=== PATIENT | female | born 1940 | race Caucasian/White ===

== ENCOUNTER 2020-07-22 07:58 | Outpatient (REF) | payer MEDICARE, SELFPAY ==
--- NOTE | 2020-07-22 08:02 | MM_ITS ---
EXAMINATION: MM SCREENING DIGITAL BREAST TOMOSYNTHESIS, BILATERAL CLINICAL INFORMATION: Screening. Asymptomatic. The lifetime risk of breast cancer based on the Tyrer-Cuzick Model is 1%. COMPARISON: Mammography: 05/07/2019, 04/14/2018 TECHNIQUE: Digital breast tomosynthesis is performed in both the craniocaudal and mediolateral oblique views along with computer-aided detection (CAD). Synthesized 2D images are generated from the tomosynthesis. Additional left MLO view is provided. FINDINGS: The breasts are almost entirely fatty (ACR BI-RADS breast composition Category a). There are no significant masses, abnormal calcifications, or other abnormalities. Background stromal and fibroglandular densities are stable. The axilla and skin contours are unremarkable. MM/MM tomosynthesis screening BI IMPRESSION: No mammographic evidence of malignancy. ASSESSMENT: BI-RADS 1: Negative RECOMMENDATION: Routine annual mammography screening. This patient's information was entered into a reminder system with a target due date for their next mammogram.
== END 2020-07-22 07:59 | disposition home or self-care (01) ==
LOC: HO.MAMMO 07:58
PROVIDERS: PCP Internal Medicine; Visit Provider Internal Medicine
DX: Z12.31 Encounter for screening mammogram for malignant neoplasm of breast (principal)
CPT/HCPCS: 77063; 77067

== ENCOUNTER 2021-08-20 11:22 | Outpatient (REF) | payer MEDICARE, SELFPAY ==
[2021-08-20 12:38] LABS: Influenza A PCR NEGATIVE (Negative); Influenza B PCR NEGATIVE (Negative); Resp Syncy Virus RNA Qual PCR NEGATIVE (Negative); SARS COV2 PCR INHOUSE NEGATIVE (Negative)
== END 2021-08-20 11:23 | disposition home or self-care (01) ==
LOC: HO.LNP 11:22
PROVIDERS: Visit Provider Internal Medicine
DX: R43.9 Unspecified disturbances of smell and taste (principal); Z20.822 Contact with and (suspected) exposure to COVID-19
CPT/HCPCS: 0241U

== ENCOUNTER 2022-11-09 09:47 | Emergency (ER) | payer MEDICARE, SELFPAY ==
--- NOTE | 2022-11-09 | ECG_ITS ---
Test Reason : lt arm pain Blood Pressure : / mmHG Vent. Rate : 057 BPM Atrial Rate : 057 BPM P-R Int : 176 ms QRS Dur : 112 ms QT Int : 396 ms P-R-T Axes : 103 078 033 degrees QTc Int : 385 ms Sinus bradycardia Right bundle branch block Abnormal ECG When compared with ECG of 13-OCT-2012 13:28, Vent. rate has decreased BY 36 BPM Right bundle branch block is now Present Referred By: Generic ED Physician Electronically Signed By:HELENA AYOUB
--- NOTE | ~2022-11-09 | CT_ITS ---
EXAMINATION: CT ABDOMEN AND PELVIS WITHOUT CONTRAST CLINICAL INFORMATION: Abdominal pain COMPARISON: None TECHNIQUE: Multidetector volumetric imaging was performed from the superior aspect of the liver through the pubic symphysis. Sagittal and coronal reformatted images were obtained on the technologist's workstation. This CT examination was performed using dose optimization techniques as appropriate, variously including the following: *Automated exposure control *Adjustment of mA and/or kV according to patient size (this includes techniques or standardized protocols for targeted exams where dose is matched to indication/reason for exam; i.e. extremities or head) *Use of iterative reconstruction technique DLP: 493 mGy-cm FINDINGS: LUNG BASES: Bibasilar atelectasis is present, left greater than right. LIVER, GALLBLADDER, AND BILIARY TREE: The liver is normal in size, shape, and attenuation. No focal hepatic lesion is present. Status post cholecystectomy with mild prominence of intrahepatic bile ducts with 1.6 cm common bile duct PANCREAS: Fatty replacement of the pancreas. SPLEEN: Unremarkable. ADRENAL GLANDS: Unremarkable. KIDNEYS AND URETERS: The kidneys are normal in size, shape, and attenuation. Bilateral benign Bosniak class I renal cysts are present the largest measuring 3.8 cm at the right lower pole. Some probable hyperattenuating Bosniak class II cysts are seen as well the largest at right upper pole measuring 0.8 cm in size and 102 Hounsfield units. No suspicious solid renal masses seen. No hydronephrosis, hydroureter, or calculi seen. No perinephric stranding. BLADDER: Unremarkable. GASTROINTESTINAL TRACT: The small and large bowel are unremarkable. The appendix is not seen with certainty but there is no evidence of appendicitis appendicitis. ABDOMINAL WALL: There is been prior anterior abdominal wall hernia repair with mesh present LYMPH NODES: No retroperitoneal lymphadenopathy. VASCULAR: Marked atherosclerotic change with calcification seen in the aorta and iliofemoral vessels without aneurysm. PELVIC VISCERA: Uterus is not seen. An abnormal adnexal mass or free intraperitoneal fluid is not present. OSSEOUS STRUCTURES: Degenerative changes are present in the spine. There is a compression fracture involving the superior and inferior endplates of L3 as well as the inferior endplate of L1. No definite acute fracture is seen. CT/CT abdomen pelvis wo IV con IMPRESSION: 1. An etiology for the patient's abdominal pain has not been found. 2. 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 Fleischner guidelines were followed.
[2022-11-09 09:55] VITALS: BP 194/94; PULSE 68; RESP 18; TEMP 36.5; O2SAT 98; BMI 30.2
[2022-11-09] MEDS: Acetaminophen 325 MG TABLET 650 MG PO (10:23)
--- NOTE | 2022-11-09 10:34 | ED.GENADULT ---
HPI - General Adult General Chief complaint: General Medical Stated complaint: Back pain Time Seen by Provider: 11/09/22 10:21 Source: patient and family (Son) Mode of arrival: ambulatory Limitations: no limitations History of Present Illness HPI narrative: 82-year-old female came in for evaluation of left shoulder pain and back pain, patient's symptoms started about a week ago after clean 2 cars from snow. Patient describes the pain as constant pain started from her left shoulder plate down to the lower spine pain is moderate 5/10 increased with movement, patient also is complaining of diffuse abdominal pain that is worsening with movement, no nausea, no vomiting, no diarrhea with the abdominal pain. Normal urination with no dysuria or frequency urination, normal bowel movement and passing flatus. Related Data Home Medications Medication Instructions Recorded Confirmed atorvastatin 40 mg tablet 40 mg PO DAILY 08/20/21 calcitriol 0.5 mcg capsule 0 mcg PO 08/20/21 fluticasone propionate 50 spray intranasal 08/20/21 mcg/actuation nasal spray,suspension hydrocortisone 2.5 % topical cream topical 08/20/21 with perineal applicator levothyroxine 88 mcg tablet 88 mcg PO DAILY 08/20/21 omeprazole 40 mg capsule,delayed 40 mg PO BID 08/20/21 release torsemide 20 mg tablet 20 mg PO DAILY 08/20/21 aspirin 325 mg tablet 325 mg PO DAILY 02/19/22 cetirizine 10 mg tablet 10 mg PO DAILY 05/09/22 pregabalin 50 mg capsule 50 mg PO DAILY PRN 05/09/22 sennosides 8.6 mg tablet (senna) 8.6 mg PO DAILY 05/09/22 sucralfate 1 gram tablet 1 g PO BID 05/09/22 Previous Rx's Medication Instructions Recorded codeine sulfate 15 mg tablet 15 mg PO Q6H PRN pain #14 tabs 05/09/22 oxycodone 5 mg tablet 5 mg PO BID PRN pain #10 tabs 11/09/22 Allergies Allergy/AdvReac Type Severity Reaction Status Date / Time morphine [Morphine] Allergy Intermediate VOMITING Verified 11/09/22 09:53 hydroxyzine [From VISTARIL] Allergy Mild NAUSEA & Verified 11/09/22 09:53 VOMITING primidone [PRIMIDONE] Allergy Mild NAUSEA & Verified 11/09/22 09:53 VOMITING topiramate Allergy Unknown Verified 11/09/22 09:55 Review of Systems Review of Systems: All other systems are reviewed and are negative Constitutional: Reports as per HPI and Reports no additional constitutional complaints Eyes: Reports as per HPI and Reports no additional eye complaints Reports system reviewed and no additional complaints, except as documented Cardiovascular: Reports as per HPI and Reports no additional cardiovascular complaints Respiratory: Reports as per HPI and Reports no additional respiratory complaints Gastrointestinal: Reports as per HPI and Reports no additional gastrointestinal complaints Genitourinary: Reports no additional female genitourinary complaints Musculoskeletal: Reports no additional musculoskeletal complaints Skin/Breast: Reports system reviewed and no additional complaints, except as docu Psychiatric: Reports no additional psychiatric complaints Endocrine: Reports no additional endocrine complaints Hematologic/Lymphatic: Reports no additional hematologic/lymphatic complaints Allergic/Immunologic: Reports no additional allergic/immunologic complaints Reports system reviewed and no additional complaints, except as documented and Reports Abnormal speech present [facility] Social History Social History Patient Tobacco Use Status: Former Tobacco user Advance Directives: No Advance Directives Information Provided: Yes Physical Exam ED Vital Signs: Vital Signs - 24 hr 11/09/22 09:55 Temperature 97.7 F Pulse Rate 68 Respiratory Rate 18 Blood Pressure 194/94 H Pulse Oximetry 98 Oxygen Delivery Method Room Air BMI result Body Mass Index 30.2 Vital signs have been reviewed as appeared to be correct. Blood pressure normal. Heart rate normal. Respiration rate normal. Temperature normal. Oxygen saturation normal. Appearance: Alert. Oriented X3. No acute distress. Head: Normal external exam. Normocephalic. Atraumatic. No Galvez signs noted. No raccoon eyes noted Eyes: PERRLA. EOMI. Conjunctiva and sclera normal. Eyelids normal. ENT: TM's Normal. Pharynx normal. Uvula midline. Moist mucous membranes. No trismus noted. No drooling noted. No muffled voice noted. Neck: Normal inspection. Neck supple. FROM. No adenopathy. Thyroid Normal. No meningeal signs. No neck mass noted. CVS: Normal heart rate and rhythm. Heart sound normal. No murmurs noted. Pulses normal throughout. Respiratory: No respiratory distress. Painless inspiration. Breath sounds normal. No wheezes/rales/rhonchi noted. Chest nontender. No accessory muscle usage noted or decreased air movement noted. Abdomen: Soft and nontender. Bowel sounds normal in all 4 quadrants. No distention noted. No organomegaly noted. No visible injury noted. Back: No CVA tenderness. Full range of motion noted. Skin: Skin warm and dry. Normal skin color. Normal skin turgor. No rashes/lesions/lacerations noted. Extremities: No lower extremity edema. Extremities exhibit normal range of motion. Extremities nontender. Neuro: Oriented X 3. Cranial nerve exam: II-XII are grossly intact No motor deficit. No sensory deficit. Reflexes normal. Course Course Course Narrative: 82-year-old female came in for back pain after cleaning a car from snow, patient reported chronic renal insufficiency and she follow-up with Dr. Rivera for her kidney. Patient was offered placement into a rehab place but patient declined placement will prescribe oxycodone to the patient move around at home. Medications Administered Generic Name Dose Route Start Last Admin Trade Name Freq PRN Reason Stop Dose Admin Sodium Chloride 1,000 mls @ 999 mls/hr 11/09/22 12:45 11/09/22 13:03 Ns IV 11/09/22 13:45 Not Given .Q1H1M ONE Discontinued Medications Generic Name Dose Route Start Last Admin Trade Name Freq PRN Reason Stop Dose Admin Acetaminophen 650 mg 11/09/22 10:19 11/09/22 10:23 Acetaminophen 325 Mg Tablet PO 11/09/22 10:20 650 mg ONCE ONE Administration Hydromorphone HCl 1 mg 11/09/22 11:04 11/09/22 11:08 Hydromorphone Hcl 1 Mg/Ml Syringe IVPUSH 11/09/22 11:05 1 mg ONCE ONE Administration Protocol Sodium Chloride 1,000 mls @ 999 mls/hr 11/09/22 10:29 11/09/22 11:44 Ns IV 11/09/22 11:29 Infused .Q1H1M ONE Infusion Oxycodone HCl 5 mg 11/09/22 13:14 11/09/22 13:31 Oxycodone Hcl Immed Release 5 Mg Tablet PO 11/09/22 13:15 5 mg ONCE ONE Administration Medical Decision Making Differential Diagnosis Differential Diagnoses: The differential diagnosis associated with the presentation includes (Left shoulder pain, ACS, myofascial pain, back pain, dehydration, electrolyte disturbance.) Lab Data MDM Lab Attestation statement: I reviewed the patient's lab results. 11/09/22 10:41 11/09/22 10:41 Labs: Lab Results 11/09/22 11/09/22 11/09/22 Range/Units 10:41 10:41 10:43 WBC 9.7 (4.8-10.8) X10*3/uL RBC 4.01 L (4.20-5.50) X10*6/uL Hgb 12.2 (12.0-16.0) g/dl Hct 38.1 (37.0-47.0) % MCV 95.0 (80.0-98.0) fL MCH 30.4 (27.0-33.0) pg MCHC 32.0 (31.0-35.0) g/dl RDW 16.5 H (11.0-16.0) % Plt Count 159 L (160-400) X10*3/uL MPV 10.4 (9.4-12.3) fL Immature Gran % (Auto) 0.4 (0.0-0.4) % Neut % (Auto) 70.3 (45-73) % Lymph % (Auto) 17.1 L (20-40) % [place] % (Auto) 7.0 (2-11) % Eos % (Auto) 4.6 H (0-4) % Baso % (Auto) 0.6 (0-2) % Lymph # (Auto) 1.7 (1.2-4.9) X10*3/uL [place] # (Auto) 0.7 (0.1-1.2) X10*3/uL Eos # (Auto) 0.5 H (0.0-0.4) X10*3/uL Baso # (Auto) 0.1 (0.0-0.2) X10*3/uL Abs Immat Gran (auto) 0.04 H (0.00-0.03) X10*3/uL Absolute Neuts (auto) 6.8 (2.0-8.3) x10*3/uL Absolute Nucleated RBC 0.000 (0.0-0.012) X10*3/uL Nucleated RBC % (auto) 0.0 (0.0-0.2) /100WBC Sodium 141 (135-145) mmol/L Potassium 4.7 (3.3-5.1) mmol/L Chloride 116 H (96-108) mmol/L Carbon Dioxide 18 L (22-29) mmol/L Anion Gap 12 (12-20) BUN 38 H (9-16) mg/dL Creatinine 1.98 H (0.5-1.4) mg/dL Estim Creat Clear Calc 19.5 Estimated GFR 24 Random Glucose 93 (60-115) mg/dL Calcium 8.9 (8.4-10.2) mg/dL Total Bilirubin 0.5 (0.0-1.0) mg/dL Direct Bilirubin < 0.2 (0.0-0.5) mg/dL AST 28 (5-31) U/L ALT 70 H (0-31) U/L Alkaline Phosphatase 92 (39-117) U/L Troponin I High Sens 4.6 (<3.5-17.0) ng/L Total Protein 5.9 L (6.5-8.0) g/dL Albumin 3.5 (3.5-5.0) g/dL Lipase 11 (8-78) U/L Independent Interpretation I performed an independent interpretation of an: CT Scan (Abdomen pelvis:An etiology for the patient's abdominal pain has not been found. 2. Incidental note made of cholecystectomy, fatty replacement of the pancreas, benign Bosniak class I and class II renal cysts which need no further imaging or follow-up and degenerative changes in the spine with chroni) Radiology Impression Discussion of test interpretation with radiology: I have reviewed the radiologist's reading. Discharge Plan Discharge Clinical Impression: Back pain Patient Disposition: Home, Self-Care Instructions: Back Pain (ED) Prescriptions: New oxycodone 5 mg tablet 5 mg PO BID PRN (Reason: pain) Qty: 10 0RF Rx Instructions: Partial Fill upon patient request. No Action aspirin 325 mg tablet 325 mg PO DAILY pregabalin 50 mg capsule 50 mg PO DAILY PRN cetirizine 10 mg tablet 10 mg PO DAILY sennosides [senna] 8.6 mg tablet 8.6 mg PO DAILY sucralfate 1 gram tablet 1 g PO BID codeine sulfate 15 mg tablet 15 mg PO Q6H PRN (Reason: pain) Qty: 14 0RF Rx Instructions: Partial Fill upon patient request. levothyroxine 88 mcg tablet 88 mcg PO DAILY hydrocortisone 2.5 % cream with perineal applicator topical fluticasone propionate 50 mcg/actuation spray,suspension intranasal calcitriol 0.5 mcg capsule 0 mcg PO atorvastatin 40 mg tablet 40 mg PO DAILY omeprazole 40 mg capsule,delayed release(DR/EC) 40 mg PO BID torsemide 20 mg tablet 20 mg PO DAILY Referrals: Alvarado Reynoso MD [Primary Care Provider] -
--- NOTE | 2022-11-09 10:36 | PC.NURSE ---
82 y/o F pw her son, pt states that she was cleaning off her car this AM when she suddenly felt a sharp pain in her L shoulder radiating to back. pt denies any CP/palps/sob, denies any other complaints. pt is ambulatory with assistance, VSS, aox3. plan for labs, imaging, IV fluids, given tylenol for pain management. pt in gown, on monitor.
[2022-11-09 10:46] LABS: MANUAL DIFF FLAG NO
[2022-11-09] MEDS: 0.9 % Sodium Chloride 1,000 ML 999 ML IV (10:47)
[2022-11-09 10:48] LABS: Basophils Absolute Auto 0.1 X10*3/uL (0.0-0.2); Basophils Percent Auto 0.6 % (0-2); Eosinophils Absolute Auto 0.5 X10*3/uL (0.0-0.4); Eosinophils Percent Auto 4.6 % (0-4); Hematocrit 38.1 % (37.0-47.0); Hemoglobin 12.2 g/dl (12.0-16.0); Imm Gran Abs Auto 0.04 X10*3/uL (0.00-0.03); Imm Gran Pct Auto 0.4 % (0.0-0.4); Lymphocytes Absolute Auto 1.7 X10*3/uL (1.2-4.9); Lymphocytes Percent Auto 17.1 % (20-40); Mean Corpuscular Hemoglobin 30.4 pg (27.0-33.0); Mean Platelet Volume 10.4 fL (9.4-12.3); Monocytes Absolute Auto 0.7 X10*3/uL (0.1-1.2); Neutrophils Absolute Auto 6.8 x10*3/uL (2.0-8.3); Neutrophils Percent Auto 70.3 % (45-73); Platelet Count 159 X10*3/uL (160-400); Red Blood Count 4.01 X10*6/uL (4.20-5.50); Red Cell Distribution Width 16.5 % (11.0-16.0); White Blood Count 9.7 X10*3/uL (4.8-10.8)
[2022-11-09 11:06] LABS: Alanine Aminotransferase 70 U/L (0-31); Albumin Level 3.5 g/dL (3.5-5.0); Alkaline Phosphatase 92 U/L (39-117); Anion Gap 12 (12-20); Aspartate Amino Transferase 28 U/L (5-31); Bilirubin Direct < 0.2 mg/dL (0.0-0.5); Bilirubin Total 0.5 mg/dL (0.0-1.0); Blood Urea Nitrogen 38 mg/dL (9-16); Calcium 8.9 mg/dL (8.4-10.2); Carbon Dioxide 18 mmol/L (22-29); Chloride 116 mmol/L (96-108); Creatinine Clr Calc Pharmacy 19.5; Estimated Glomerular Filt Rate 24; Glucose Random 93 mg/dL (60-115); Lipase 11 U/L (8-78); Potassium 4.7 mmol/L (3.3-5.1); Sodium 141 mmol/L (135-145); Total Protein 5.9 g/dL (6.5-8.0)
[2022-11-09 11:07] LABS: Troponin-I High Sensitivity 4.6 ng/L (<3.5-17.0)
[2022-11-09] MEDS: HYDROmorphone HCl 1 MG/ML SYRINGE IVPUSH (11:08)
[2022-11-09] MEDS: oxyCODONE HCl Immed Release 5 MG TABLET PO (13:31)
== END 2022-11-09 15:14 | disposition home or self-care (01) ==
PROVIDERS: Emergency Provider Emergency Medicine; PCP Internal Medicine
DX: M54.9 Dorsalgia, unspecified (principal); R10.9 Unspecified abdominal pain; R93.5 Abnormal findings on diagnostic imaging of other abdominal regions, including retroperitoneum; K86.89 Other specified diseases of pancreas; Q61.02 Congenital multiple renal cysts; M47.819 Spondylosis without myelopathy or radiculopathy, site unspecified; Z87.891 Personal history of nicotine dependence; Z79.02 Long term (current) use of antithrombotics/antiplatelets; Z79.82 Long term (current) use of aspirin; Z79.899 Other long term (current) drug therapy
CPT/HCPCS: 36415; 74176; 80048; 80076; 83690; 84484; 85025; 93005; 96361; 96374; 99284; J1170

== ENCOUNTER 2023-01-03 12:09 | Observation (INO) | payer MEDICARE, OTHER, SELFPAY ==
--- NOTE | ~2023-01-03 | CT_ITS ---
EXAMINATION: CT ABDOMEN AND PELVIS WITHOUT CONTRAST CLINICAL INFORMATION: Lower abdominal pain, black stools. COMPARISON: CT abdomen and pelvis without IV contrast 1123 TECHNIQUE: Multidetector volumetric imaging was performed from the superior aspect of the liver through the pubic symphysis. Sagittal and coronal reformatted images were obtained on the technologist's workstation. This CT examination was performed using dose optimization techniques as appropriate, variously including the following: *Automated exposure control *Adjustment of mA and/or kV according to patient size (this includes techniques or standardized protocols for targeted exams where dose is matched to indication/reason for exam; i.e. extremities or head) *Use of iterative reconstruction technique DLP: 485 mGy-cm FINDINGS: LUNG BASES: The lung bases are clear. The heart size is normal. LIVER, GALLBLADDER, AND BILIARY TREE: The liver is normal in size, shape, and attenuation. No focal hepatic lesion or biliary ductal dilatation is present. The gallbladder has been surgically removed. The CBD is dilated measuring 1.2 cm. PANCREAS: The pancreas is atrophic. SPLEEN: Unremarkable. ADRENAL GLANDS: Unremarkable. KIDNEYS AND URETERS: The kidneys are normal in size, shape, and attenuation. No hydronephrosis, hydroureter, or calculi seen. No perinephric stranding. There are several hypodense small lesions in the upper pole left kidney and mid lower pole right kidney measuring 3 mm and less. There is 3.8 cm cyst lower pole right kidney with a bilobed adjacent to centimeters cyst in mid to lower pole right kidney. BLADDER: Unremarkable. GASTROINTESTINAL TRACT: There is scattered stool, diverticula and gas seen throughout the colon without distention. The small bowel loops are normal caliber. Appendix is normal caliber. No free air or free fluid seen. ABDOMINAL WALL: There is previous anterior abdominal wall hernia repair with mesh in place LYMPH NODES: No abnormal size retroperitoneal or pelvic lymph nodes seen. VASCULAR: There is arthroscopic calcification of abdominal aorta and bilateral common iliac arteries. PELVIC VISCERA: There is diffuse sigmoid colon diverticula since without diverticulitis. OSSEOUS STRUCTURES: There are old compression fractures involving L3 and L1 vertebra. Mild degenerative vacuum disc phenomena L5-S1 and L1-L2 disc levels. CT/CT abdomen pelvis wo IV con IMPRESSION: 1. Diffuse sigmoid and scattered rest of the colon diverticulosis without diverticulitis. 2. No radiopaque urolith or hydroureteronephrosis. Simple and complex renal cysts. 3. Old compression fracture lumbar spine. Fleischner guidelines were followed.
[2023-01-03 12:22] VITALS: BP 197/66; PULSE 66; RESP 16; TEMP 35.8; O2SAT 97; BMI 30.1
--- NOTE | 2023-01-03 12:23 | ED_ITS ---
HPI - GI Bleed General Chief complaint: General Medical Stated complaint: blood in stools Time Seen by Provider: 01/03/23 14:36 Related Data Home Medications Medication Instructions Recorded Confirmed atorvastatin 40 mg tablet 40 mg PO BEDTIME 08/20/21 01/03/23 fluticasone propionate 50 1 spray intranasal DAILY PRN 08/20/21 01/03/23 mcg/actuation nasal Congestion spray,suspension levothyroxine 88 mcg tablet 88 mcg PO DAILY@0600 08/20/21 01/03/23 omeprazole 40 mg capsule,delayed 40 mg PO BID 08/20/21 01/03/23 release torsemide 20 mg tablet 20 mg PO TUSA 08/20/21 01/03/23 aspirin 325 mg tablet 325 mg PO DAILY 02/19/22 01/03/23 cetirizine 10 mg tablet 10 mg PO DAILY 05/09/22 01/03/23 sennosides 8.6 mg tablet (senna) 8.6 mg PO Q48H 05/09/22 01/03/23 sucralfate 1 gram tablet 1 g PO BID 05/09/22 01/03/23 calcitriol 0.5 mcg capsule 2 mcg PO SA 01/03/23 01/03/23 cholecalciferol (vitamin D3) 50 50 mcg PO DAILY 01/03/23 01/03/23 mcg (2,000 unit) tablet cyanocobalamin (vitamin B-12) 1,000 mcg PO DAILY 01/03/23 01/03/23 1,000 mcg tablet fluticasone fur. 100 mcg-umeclid 1 ea inhalation DAILY 01/03/23 01/03/23 62.5 mcg-vilant 25 mcg inhalat.powder (Trelegy Ellipta) halobetasol propionate 0.05 % 1 appl topical BID PRN Rash 01/03/23 01/03/23 topical cream metoprolol succinate 25 mg 25 mg PO DAILY 01/03/23 01/03/23 tablet,extended release 24 hr metronidazole 0.75 % topical cream 1 appl topical DAILY PRN Rash 01/03/23 0 01/03/23 montelukast 10 mg tablet 10 mg PO BEDTIME 01/03/23 01/03/23 potassium chloride 20 mEq 20 meq PO TUSA 01/03/23 01/03/23 tablet,extended release pregabalin 50 mg capsule 50 mg PO DAILY 01/03/23 01/03/23 sertraline 25 mg tablet 25 mg PO DAILY 01/03/23 01/03/23 Allergies Allergy/AdvReac Type Severity Reaction Status Date / Time morphine [Morphine] Allergy Intermediate VOMITING Verified 11/09/22 09:53 hydroxyzine [From VISTARIL] Allergy Mild NAUSEA & Verified 11/09/22 09:53 VOMITING primidone [PRIMIDONE] Allergy Mild NAUSEA & Verified 11/09/22 09:53 VOMITING topiramate Allergy Unknown Verified 11/09/22 09:55 [facility] Past Medical History Medical History (Updated 01/03/23 @ 17:12 by CAROLYN Jack) CHF (congestive heart failure) CKD (chronic kidney disease) COPD (chronic obstructive pulmonary disease) GERD (gastroesophageal reflux disease) HLD (hyperlipidemia) HTN (hypertension) Hypothyroidism Social History Social History Alcohol intake: never Patient Tobacco Use Status: Former Tobacco user Physical Exam Vital Signs: Vital Signs: Last Vital Signs Temp 96.5 F L 01/03/23 12:22 Pulse 66 01/03/23 12:22 Resp 16 01/03/23 12:22 BP 176/84 H 01/03/23 20:30 Pulse Ox 97 01/03/23 12:22 O2 Del Method Room Air 01/03/23 12:22 BMI result Body Mass Index 30.1 Course Course Course Narrative: RME - 82 yo female with history of CHF, COPD, HTN, hypothyroidism, and CKD who presents to the ER for evaluation of loose black stools that started yesterday. She states she has had 3 episodes since yesterday. She has had stomach cramping for the last 2 weeks. She has some lower abdominal pain. +nausea, no vomiting. She is on baby aspirin, no anticoagluation or NSAIDs. No hx GIB in the past. Last colonoscopy and EGD 5-6 years ago and she cannot recall any abnormal results. Hypertensive in triage 190s systolic. Not tachycardic. She took her BP meds this am. Plan: lab workup and CT scan and/pelvis (dry, hx CKD) Reevaluation(s) Reevaluation #1: See Dr. Andrade's note for full assessment and plan Medications Administered Generic Name Dose Route Start Last Admin Trade Name Husam PRN Reason Stop Dose Admin Sodium Chloride 1,000 mls @ 100 mls/hr 01/03/23 16:30 01/03/23 17:10 Ns IVCONT 100 mls/hr .Q10H WALLY Administration Discontinued Medications Generic Name Dose Route Start Last Admin Trade Name Husam PRN Reason Stop Dose Admin Famotidine 20 mg 01/03/23 16:15 01/03/23 17:10 Famotidine/Pf 20 Mg/2 Ml Vial IVPUSH 01/03/23 16:16 20 mg ONCE ONE Administration Medical Decision Making Lab Data 01/03/23 12:43 01/03/23 14:47 Labs: Lab Results 01/03/23 01/03/23 01/03/23 Range/Units 12:43 14:44 14:47 WBC 11.3 H (4.8-10.8) X10*3/uL RBC 4.06 L (4.20-5.50) X10*6/uL Hgb 12.9 (12.0-16.0) g/dl Hct 40.9 (37.0-47.0) % MCV 100.7 H (80.0-98.0) fL MCH 31.8 (27.0-33.0) pg MCHC 31.5 (31.0-35.0) g/dl RDW 14.5 (11.0-16.0) % Plt Count 225 D (160-400) X10*3/uL MPV 10.9 (9.4-12.3) fL Immature Gran % (Auto) 0.6 H (0.0-0.4) % Neut % (Auto) 68.5 (45-73) % Lymph % (Auto) 18.5 L (20-40) % Coffee % (Auto) 7.1 (2-11) % Eos % (Auto) 4.7 H (0-4) % Baso % (Auto) 0.6 (0-2) % Lymph # (Auto) 2.1 (1.2-4.9) X10*3/uL Coffee # (Auto) 0.8 (0.1-1.2) X10*3/uL Eos # (Auto) 0.5 H (0.0-0.4) X10*3/uL Baso # (Auto) 0.1 (0.0-0.2) X10*3/uL Abs Immat Gran (auto) 0.07 H (0.00-0.03) X10*3/uL Absolute Neuts (auto) 7.7 (2.0-8.3) x10*3/uL Absolute Nucleated RBC 0.000 (0.0-0.012) X10*3/uL Nucleated RBC % (auto) 0.0 (0.0-0.2) /100WBC PT 11.2 (10.0-13.1) SEC INR 1.0 (0.9-1.1) APTT 26.1 (26.0-36.4) SEC Sodium (135-145) mmol/L Potassium (3.3-5.1) mmol/L Chloride (96-108) mmol/L Carbon Dioxide (22-29) mmol/L Anion Gap (12-20) BUN (9-16) mg/dL Creatinine (0.5-1.4) mg/dL Estim Creat Clear Calc Estimated GFR Random Glucose (60-115) mg/dL Calcium (8.4-10.2) mg/dL Magnesium (1.6-2.6) mg/dL Total Bilirubin (0.0-1.0) mg/dL Direct Bilirubin (0.0-0.5) mg/dL AST (5-31) U/L ALT (0-31) U/L Alkaline Phosphatase (39-117) U/L Total Protein (6.5-8.0) g/dL Albumin (3.5-5.0) g/dL Urine Color Urine Appearance Urine pH (5.0-9.0) Ur Specific [place] (1.005-1.025) Urine Protein (Neg-Trace) mg/dL Urine Glucose (UA) (Negative) mg/dL Urine Ketones (Negative) mg/dL Urine Blood (Negative) Urine Nitrite (Negative) Ur Leukocyte Esterase (Negative) Urine RBC (0-2) /HPF Urine WBC (0-5) /HPF Ur Squamous Epith Cells (0-2) /HPF Urine Bacteria (None Seen) Hyaline Casts (0-2) /LPF Stool Occult Blood POSITIVE (NEGATIVE) 01/03/23 01/03/23 Range/Units 14:47 15:48 WBC (4.8-10.8) X10*3/uL RBC (4.20-5.50) X10*6/uL Hgb (12.0-16.0) g/dl Hct (37.0-47.0) % MCV (80.0-98.0) fL MCH (27.0-33.0) pg MCHC (31.0-35.0) g/dl RDW (11.0-16.0) % Plt Count (160-400) X10*3/uL MPV (9.4-12.3) fL Immature Gran % (Auto) (0.0-0.4) % Neut % (Auto) (45-73) % Lymph % (Auto) (20-40) % [place] % (Auto) (2-11) % Eos % (Auto) (0-4) % Baso % (Auto) (0-2) % Lymph # (Auto) (1.2-4.9) X10*3/uL [place] # (Auto) (0.1-1.2) X10*3/uL Eos # (Auto) (0.0-0.4) X10*3/uL Baso # (Auto) (0.0-0.2) X10*3/uL Abs Immat Gran (auto) (0.00-0.03) X10*3/uL Absolute Neuts (auto) (2.0-8.3) x10*3/uL Absolute Nucleated RBC (0.0-0.012) X10*3/uL Nucleated RBC % (auto) (0.0-0.2) /100WBC PT (10.0-13.1) SEC INR (0.9-1.1) APTT (26.0-36.4) SEC Sodium 140 (135-145) mmol/L Potassium 4.4 (3.3-5.1) mmol/L Chloride 112 H (96-108) mmol/L Carbon Dioxide 20 L (22-29) mmol/L Anion Gap 12 (12-20) BUN 26 H (9-16) mg/dL Creatinine 1.80 H (0.5-1.4) mg/dL Estim Creat Clear Calc 21.3 Estimated GFR 27 Random Glucose 86 (60-115) mg/dL Calcium 9.4 (8.4-10.2) mg/dL Magnesium 2.0 (1.6-2.6) mg/dL Total Bilirubin 0.5 (0.0-1.0) mg/dL Direct Bilirubin 0.1 (0.0-0.5) mg/dL AST 17 (5-31) U/L ALT 16 (0-31) U/L Alkaline Phosphatase 60 (39-117) U/L Total Protein 6.3 L (6.5-8.0) g/dL Albumin 3.8 (3.5-5.0) g/dL Urine Color Yellow Urine Appearance Clear Urine pH 5.5 (5.0-9.0) Ur Specific [place] 1.010 (1.005-1.025) Urine Protein Negative (Neg-Trace) mg/dL Urine Glucose (UA) Negative (Negative) mg/dL Urine Ketones Negative (Negative) mg/dL Urine Blood Trace H (Negative) Urine Nitrite Negative (Negative) Ur Leukocyte Esterase Large (3+) H (Negative) Urine RBC 0-2 (0-2) /HPF Urine WBC 21-50 H (0-5) /HPF Ur Squamous Epith Cells 3-5 (0-2) /HPF Urine Bacteria None Seen (None Seen) Hyaline Casts 0-2 (0-2) /LPF Stool Occult Blood (NEGATIVE) Discharge Plan Discharge Clinical Impression: PRB (rectal bleeding) Patient Disposition: Admitted As Inpatient Interventions: Admission Worksheet (ED) Last Done: 01/03/23 18:44 Discharge Date/Time: 01/03/23 18:45
[2023-01-03 12:46] LABS: MANUAL DIFF FLAG NO
[2023-01-03 12:47] LABS: Basophils Absolute Auto 0.1 X10*3/uL (0.0-0.2); Basophils Percent Auto 0.6 % (0-2); Eosinophils Absolute Auto 0.5 X10*3/uL (0.0-0.4); Eosinophils Percent Auto 4.7 % (0-4); Hematocrit 40.9 % (37.0-47.0); Hemoglobin 12.9 g/dl (12.0-16.0); Imm Gran Abs Auto 0.07 X10*3/uL (0.00-0.03); Imm Gran Pct Auto 0.6 % (0.0-0.4); Lymphocytes Absolute Auto 2.1 X10*3/uL (1.2-4.9); Lymphocytes Percent Auto 18.5 % (20-40); Mean Corpuscular HGB Conc 31.5 g/dl (31.0-35.0); Mean Corpuscular Hemoglobin 31.8 pg (27.0-33.0); Mean Corpuscular Volume 100.7 fL (80.0-98.0); Mean Platelet Volume 10.9 fL (9.4-12.3); Monocytes Absolute Auto 0.8 X10*3/uL (0.1-1.2); Monocytes Percent Auto 7.1 % (2-11); Neutrophils Absolute Auto 7.7 x10*3/uL (2.0-8.3); Neutrophils Percent Auto 68.5 % (45-73); Platelet Count 225 X10*3/uL (160-400); Red Blood Count 4.06 X10*6/uL (4.20-5.50); Red Cell Distribution Width 14.5 % (11.0-16.0); White Blood Count 11.3 X10*3/uL (4.8-10.8)
--- NOTE | 2023-01-03 14:37 | ED_ITS ---
HPI - General Adult General Chief complaint: General Medical Stated complaint: blood in stools Time Seen by Provider: 01/03/23 14:36 Source: patient Mode of arrival: ambulatory Limitations: no limitations History of Present Illness HPI narrative: This is 82 years old female presented to the emergency department complaining of rectal bleeding since yesterday also she is complaining of abdominal cramps. Denies any vomiting. No fever no other systemic symptoms Onset (ago): day(s) (2) Radiation: non-radiation Severity: moderate Quality: burning Pain Consistency: constant Relieving factors: none Exacerbating factors: none Treatments prior to arrival: none Related Data Home Medications Medication Instructions Recorded Confirmed atorvastatin 40 mg tablet 40 mg PO DAILY 08/20/21 calcitriol 0.5 mcg capsule 0 mcg PO 08/20/21 fluticasone propionate 50 spray intranasal 08/20/21 mcg/actuation nasal spray,suspension hydrocortisone 2.5 % topical cream topical 08/20/21 with perineal applicator levothyroxine 88 mcg tablet 88 mcg PO DAILY 08/20/21 omeprazole 40 mg capsule,delayed 40 mg PO BID 08/20/21 release torsemide 20 mg tablet 20 mg PO DAILY 08/20/21 aspirin 325 mg tablet 325 mg PO DAILY 02/19/22 cetirizine 10 mg tablet 10 mg PO DAILY 05/09/22 pregabalin 50 mg capsule 50 mg PO DAILY PRN 05/09/22 sennosides 8.6 mg tablet (senna) 8.6 mg PO DAILY 05/09/22 sucralfate 1 gram tablet 1 g PO BID 05/09/22 Previous Rx's Medication Instructions Recorded codeine sulfate 15 mg tablet 15 mg PO Q6H PRN pain #14 tabs 05/09/22 oxycodone 5 mg tablet 5 mg PO BID PRN pain #10 tabs 11/09/22 Allergies Allergy/AdvReac Type Severity Reaction Status Date / Time morphine [Morphine] Allergy Intermediate VOMITING Verified 11/09/22 09:53 hydroxyzine [From VISTARIL] Allergy Mild NAUSEA & Verified 11/09/22 09:53 VOMITING primidone [PRIMIDONE] Allergy Mild NAUSEA & Verified 11/09/22 09:53 VOMITING topiramate Allergy Unknown Verified 11/09/22 09:55 Review of Systems Constitutional: Constitutional: Reports no additional constitutional complaints Cardiovascular: Cardiovascular: Reports no additional cardiovascular complaints Gastrointestinal: Gastrointestinal: Denies abdominal pain, Reports hematochezia and Reports nausea [facility] Past Medical History [facility] Narrative: Patient has history of congestive heart failure, hypertension, hypercholesterolemia Social History Social History Patient Tobacco Use Status: Former Tobacco user Advance Directives: No Advance Directives Information Provided: Yes Physical Exam ED Vital Signs: Vital Signs - 24 hr 01/03/23 12:22 Temperature 96.5 F L Pulse Rate 66 Respiratory Rate 16 Blood Pressure 197/66 H Pulse Oximetry 97 Oxygen Delivery Method Room Air BMI result Body Mass Index 30.1 Const General: cooperative Nutritional Appearance: well nourished Orientation/consciousness: patient oriented x3 HENMT Head: Yes normal to inspection General nose exam: Normal external nose present Face and sinus: Yes normal facial exam Mouth: Normal oral and palatal mucosa present Throat: Yes posterior oropharynx normal Neck Neck: Yes normal visual inspection and Yes full ROM Chest Chest palpation & inspection: normal inspection of the chest Resp Effort & Inspection: normal respiratory effort Cardio Rate: regular rate Rhythm: regular rhythm GI Inspection: Yes normal to inspection Palpation (GI): not soft, not firm, nontender, no guarding and not rigid Rectal Exam - Female: visual inspection normal, normal sphincter tone and other (brown stools) Neuro General: patient oriented x3 Course Reevaluation(s) Reevaluation #1: Remain stable anticipate admission for observation H&H stable Time: 16:36 Medical Decision Making Medical Decision Making [facility] Narrative: Patient presented with a bleeding hemoglobin is stable given her age [age] years old this resume to admit for observation Differential Diagnosis Differential Diagnoses: The differential diagnosis associated with the presentation includes Colitis/diverticulitis/hemorrhoid Admission/Observation Consideration of admission/observation: Escalation of care including admission/observation considered Consult Healthcare Provider Management of the patient was discussed with: Hospitalist Lab Data [facility] Lab Attestation statement: I reviewed the patient's lab results. 01/03/23 12:43 Labs: Lab Results 01/03/23 01/03/23 01/03/23 Range/Units 12:43 14:44 14:47 WBC 11.3 H (4.8-10.8) X10*3/uL RBC 4.06 L (4.20-5.50) X10*6/uL Hgb 12.9 (12.0-16.0) g/dl Hct 40.9 (37.0-47.0) % MCV 100.7 H (80.0-98.0) fL MCH 31.8 (27.0-33.0) pg MCHC 31.5 (31.0-35.0) g/dl RDW 14.5 (11.0-16.0) % Plt Count 225 D (160-400) X10*3/uL MPV 10.9 (9.4-12.3) fL Immature Gran % (Auto) 0.6 H (0.0-0.4) % Neut % (Auto) 68.5 (45-73) % Lymph % (Auto) 18.5 L (20-40) % Glenn % (Auto) 7.1 (2-11) % Eos % (Auto) 4.7 H (0-4) % Baso % (Auto) 0.6 (0-2) % Lymph # (Auto) 2.1 (1.2-4.9) X10*3/uL Glenn # (Auto) 0.8 (0.1-1.2) X10*3/uL Eos # (Auto) 0.5 H (0.0-0.4) X10*3/uL Baso # (Auto) 0.1 (0.0-0.2) X10*3/uL Abs Immat Gran (auto) 0.07 H (0.00-0.03) X10*3/uL Absolute Neuts (auto) 7.7 (2.0-8.3) x10*3/uL Absolute Nucleated RBC 0.000 (0.0-0.012) X10*3/uL Nucleated RBC % (auto) 0.0 (0.0-0.2) /100WBC PT 11.2 (10.0-13.1) SEC INR 1.0 (0.9-1.1) APTT 26.1 (26.0-36.4) SEC Sodium (135-145) mmol/L Potassium (3.3-5.1) mmol/L Chloride (96-108) mmol/L Carbon Dioxide (22-29) mmol/L Anion Gap (12-20) BUN (9-16) mg/dL Creatinine (0.5-1.4) mg/dL Estim Creat Clear Calc Estimated GFR Random Glucose (60-115) mg/dL Calcium (8.4-10.2) mg/dL Magnesium (1.6-2.6) mg/dL Total Bilirubin (0.0-1.0) mg/dL Direct Bilirubin (0.0-0.5) mg/dL AST (5-31) U/L ALT (0-31) U/L Alkaline Phosphatase (39-117) U/L Total Protein (6.5-8.0) g/dL Albumin (3.5-5.0) g/dL Urine Color Urine Appearance Urine pH (5.0-9.0) Ur Specific [place] (1.005-1.025) Urine Protein (Neg-Trace) mg/dL Urine Glucose (UA) (Negative) mg/dL Urine Ketones (Negative) mg/dL Urine Blood (Negative) Urine Nitrite (Negative) Ur Leukocyte Esterase (Negative) Urine RBC (0-2) /HPF Urine WBC (0-5) /HPF Ur Squamous Epith Cells (0-2) /HPF Urine Bacteria (None Seen) Hyaline Casts (0-2) /LPF Stool Occult Blood POSITIVE (NEGATIVE) 01/03/23 01/03/23 Range/Units 14:47 15:48 WBC (4.8-10.8) X10*3/uL RBC (4.20-5.50) X10*6/uL Hgb (12.0-16.0) g/dl Hct (37.0-47.0) % MCV (80.0-98.0) fL MCH (27.0-33.0) pg MCHC (31.0-35.0) g/dl RDW (11.0-16.0) % Plt Count (160-400) X10*3/uL MPV (9.4-12.3) fL Immature Gran % (Auto) (0.0-0.4) % Neut % (Auto) (45-73) % Lymph % (Auto) (20-40) % Glenn % (Auto) (2-11) % Eos % (Auto) (0-4) % Baso % (Auto) (0-2) % Lymph # (Auto) (1.2-4.9) X10*3/uL [place] # (Auto) (0.1-1.2) X10*3/uL Eos # (Auto) (0.0-0.4) X10*3/uL Baso # (Auto) (0.0-0.2) X10*3/uL Abs Immat Gran (auto) (0.00-0.03) X10*3/uL Absolute Neuts (auto) (2.0-8.3) x10*3/uL Absolute Nucleated RBC (0.0-0.012) X10*3/uL Nucleated RBC % (auto) (0.0-0.2) /100WBC PT (10.0-13.1) SEC INR (0.9-1.1) APTT (26.0-36.4) SEC Sodium 140 (135-145) mmol/L Potassium 4.4 (3.3-5.1) mmol/L Chloride 112 H (96-108) mmol/L Carbon Dioxide 20 L (22-29) mmol/L Anion Gap 12 (12-20) BUN 26 H (9-16) mg/dL Creatinine 1.80 H (0.5-1.4) mg/dL Estim Creat Clear Calc 21.3 Estimated GFR 27 Random Glucose 86 (60-115) mg/dL Calcium 9.4 (8.4-10.2) mg/dL Magnesium 2.0 (1.6-2.6) mg/dL Total Bilirubin 0.5 (0.0-1.0) mg/dL Direct Bilirubin 0.1 (0.0-0.5) mg/dL AST 17 (5-31) U/L ALT 16 (0-31) U/L Alkaline Phosphatase 60 (39-117) U/L Total Protein 6.3 L (6.5-8.0) g/dL Albumin 3.8 (3.5-5.0) g/dL Urine Color Yellow Urine Appearance Clear Urine pH 5.5 (5.0-9.0) Ur Specific [place] 1.010 (1.005-1.025) Urine Protein Negative (Neg-Trace) mg/dL Urine Glucose (UA) Negative (Negative) mg/dL Urine Ketones Negative (Negative) mg/dL Urine Blood Trace H (Negative) Urine Nitrite Negative (Negative) Ur Leukocyte Esterase Large (3+) H (Negative) Urine RBC 0-2 (0-2) /HPF Urine WBC 21-50 H (0-5) /HPF Ur Squamous Epith Cells 3-5 (0-2) /HPF Urine Bacteria None Seen (None Seen) Hyaline Casts 0-2 (0-2) /LPF Stool Occult Blood (NEGATIVE) Independent Interpretation I performed an independent interpretation of an: CT Scan Interpretation: Normal CT Radiology Impression Discussion of test interpretation with radiology: I have reviewed the radiologist's reading. Radiologist Impression: VASCULAR: There is arthroscopic calcification of abdominal aorta and bilateral common iliac arteries. PELVIC VISCERA: There is diffuse sigmoid colon diverticula since without diverticulitis.? OSSEOUS STRUCTURES: There are old compression fractures involving L3 and L1 vertebra. Mild degenerative vacuum disc phenomena L5-S1 and L1-L2 disc levels.? CT/CT abdomen pelvis wo IV con IMPRESSION: 1.? Diffuse sigmoid and scattered rest of the colon diverticulosis without diverticulitis. 2.? No radiopaque urolith or hydroureteronephrosis. Simple and complex renal cysts. 3.? Old compression fracture lumbar spine. ? Fleischner guidelines were followed. Dictated By: Montana Velazquez Discharge Plan Discharge Clinical Impression: PRB (rectal bleeding) Patient Disposition: Admitted As Inpatient
[2023-01-03 14:55] LABS: OBS Int Ctl Valid YES; OBS1 POSITIVE (NEGATIVE)
[2023-01-03 15:01] LABS: Prothrombin Time 11.2 SEC (10.0-13.1)
[2023-01-03 15:04] LABS: Partial Thromboplastin Time 26.1 SEC (26.0-36.4)
[2023-01-03 15:49] LABS: Alanine Aminotransferase 16 U/L (0-31); Albumin Level 3.8 g/dL (3.5-5.0); Alkaline Phosphatase 60 U/L (39-117); Anion Gap 12 (12-20); Aspartate Amino Transferase 17 U/L (5-31); Bilirubin Direct 0.1 mg/dL (0.0-0.5); Bilirubin Total 0.5 mg/dL (0.0-1.0); Blood Urea Nitrogen 26 mg/dL (9-16); Calcium 9.4 mg/dL (8.4-10.2); Carbon Dioxide 20 mmol/L (22-29); Chloride 112 mmol/L (96-108); Creatinine Clr Calc Pharmacy 21.3; Estimated Glomerular Filt Rate 27; Glucose Random 86 mg/dL (60-115); Potassium 4.4 mmol/L (3.3-5.1); Sodium 140 mmol/L (135-145); Total Protein 6.3 g/dL (6.5-8.0)
[2023-01-03 16:01] LABS: Appearance Urine Clear; Color Urine Yellow; Glucose Urine UA Negative (Negative); Leukocyte Esterase Urine Large (3+) (Negative); Nitrite Urine Negative (Negative); PH 5.5 (5.0-9.0); UMIC TRIGGER UACC YES; Urine Blood Trace (Negative); Urine Ketones Negative (Negative); Urine Protein Negative (Neg-Trace)
[2023-01-03 16:06] LABS: Bacteria Urine None Seen (None Seen); Hyaline Casts Urine 0-2 /LPF (0-2); RBC Urine 0-2 /HPF (0-2); UACC Culture Trigger YES; WBC Urine 21-50 /HPF (0-5)
--- NOTE | 2023-01-03 16:45 | P.HPHOSP_ITS ---
History of Present Illness Date of Service: 01/03/23 Attending physician on admission: Sesar Kohler Chief Complaint: abdominal pain, black stools This is an 82-year-old female with history of hypertension, hyperlipidemia, COPD who presents to the emergency department with complaints of abdominal pain and black stools. Patient states for the past 2 weeks she has had 2-3 episodes of diarrhea daily. This has been associated with persistent mid abdominal cramping. The pain is worse after eating and it improves after a bout of diarrhea temporarily. She denies any associated fever or chills. She has had nausea but no vomiting. For past 2 days she states that her diarrhea has changed to a black color, there has not been any bright red blood. She denies any takeout food, recent sick contacts, travel. She takes a baby aspirin daily but denies the use of any other NSAIDs or alcohol. She did recently have a course of oral prednisone for back pain. In the emergency department she underwent a CT scan of the abdomen/pelvis which showed no evidence of acute inflammation. She has had decreased oral intake over the past 2 weeks since the onset of her symptoms as it does make her abdominal pain somewhat worse after eating. Her hemoglobin and hematocrit were within normal range and her vital signs have remained stable. She denies any dizziness, shortness of breath, chest pain. She has history of acid reflux but no recent change in symptoms. Endoscopy and colonoscopy or obtained approximately 5 years ago and were reportedly unremarkable at that time. Given black stools the decision was made to admit her to the hospital for observation and further evaluation. Review of Systems Review of Systems: Yes all other systems are reviewed and are negative Constitutional: Constitutional: Denies chills and Denies fever(s) ENT: Denies dizziness Cardiovascular: Cardiovascular: Denies chest pain, Denies palpitations and Denies dyspnea Respiratory: Respiratory: Denies cough and Denies dyspnea Gastrointestinal: Gastrointestinal: Reports abdominal pain, Reports change in stool character, Reports diarrhea, Reports nausea and Denies vomiting Neurologic: Denies dizziness Endocrine: Endocrine: Denies palpitations [facility] Medical History (Updated 01/03/23 @ 17:12 by CAROLYN Jack) CHF (congestive heart failure) CKD (chronic kidney disease) COPD (chronic obstructive pulmonary disease) GERD (gastroesophageal reflux disease) HLD (hyperlipidemia) HTN (hypertension) Hypothyroidism Social History Alcohol intake: never Patient Tobacco Use Status: Former Tobacco user Smoked in Last 30 Days: No Use of substances other than those prescribed or required for medical reasons: No Advance Directives: No Advance Directives Information Provided: Yes Nutrition Risks: No Nutritional Risk Meds Allergies Allergy/AdvReac Type Severity Reaction Status Date / Time morphine [Morphine] Allergy Intermediate VOMITING Verified 11/09/22 09:53 hydroxyzine [From VISTARIL] Allergy Mild NAUSEA & Verified 11/09/22 09:53 VOMITING primidone [PRIMIDONE] Allergy Mild NAUSEA & Verified 11/09/22 09:53 VOMITING topiramate Allergy Unknown Verified 11/09/22 09:55 Active Medications: Current Medications Acetaminophen (Acetaminophen 325 Mg Tablet) 650 mg PO Q6H PRN PRN Reason: Pain, Mild (Pain Scale 1-3) Sodium Chloride (Ns) 1,000 mls @ 100 mls/hr IVCONT .Q10H [facility] Ondansetron HCl (Ondansetron Hcl 4 Mg/2 Ml Vial) 4 mg IVPUSH Q8H PRN PRN Reason: Nausea and Vomiting Pantoprazole Sodium (Pantoprazole Sodium 40 Mg/10 Ml Vial) 40 mg IVPUSH DAILY@0630 [facility] Pharmacy Consult (Consult Rx Perform Med Rec) 1 each MISCELLANE ONCE PRN PRN Reason: Consult order Sodium Chloride (0.9 % Sodium Chloride Flush 3 Ml Syringe) 3 ml IVFLUSH QSHIFT [facility] Home Medications Medication Instructions Recorded Confirmed Last Taken Type atorvastatin 40 mg tablet 40 mg PO DAILY 08/20/21 Unknown History fluticasone propionate 50 spray intranasal 08/20/21 Unknown History mcg/actuation nasal spray,suspension levothyroxine 88 mcg tablet 88 mcg PO DAILY 08/20/21 Unknown History omeprazole 40 mg capsule,delayed 40 mg PO BID 08/20/21 Unknown History release torsemide 20 mg tablet 20 mg PO DAILY 08/20/21 Unknown History aspirin 325 mg tablet 325 mg PO DAILY 02/19/22 Unknown History cetirizine 10 mg tablet 10 mg PO DAILY 05/09/22 Unknown History sennosides 8.6 mg tablet (senna) 8.6 mg PO DAILY 05/09/22 Unknown History sucralfate 1 gram tablet 1 g PO BID 05/09/22 Unknown History fluticasone fur. 100 mcg-umeclid 1 ea inhalation DAILY 01/03/23 Unknown History 62.5 mcg-vilant 25 mcg inhalat.powder (Trelegy Ellipta) metoprolol succinate 25 mg 25 mg PO DAILY 01/03/23 Unknown History tablet,extended release 24 hr montelukast 10 mg tablet 10 mg PO DAILY 01/03/23 Unknown History potassium chloride 20 mEq 20 meq PO BID 01/03/23 Unknown History tablet,extended release sertraline 25 mg tablet 25 mg PO DAILY 01/03/23 Unknown History Physical Exam Vital Signs and Narrative: Vital Signs: Last Vital Signs Temp 96.5 F L 01/03/23 12:22 Pulse 66 01/03/23 12:22 Resp 16 01/03/23 12:22 BP 197/66 H 01/03/23 12:22 Pulse Ox 97 01/03/23 12:22 O2 Del Method Room Air 01/03/23 12:22 BMI result Body Mass Index 30.1 Const: General: cooperative, comfortable, no acute distress, alert and awake Nutritional Appearance: average body habitus Orientation/consciousness: patient oriented x3 Resp: Effort & Inspection: normal respiratory effort and able to speak in complete sentences Auscultation: clear to auscultation bilaterally Cardio: Rate: regular rate Heart sounds: S1 normal heart sound present and S2 normal heart sound present GI: Other: no guarding, no rebound, +BS Inspection: No distended Palpation (GI): Soft to palpation and nontender Neuro: General: patient oriented x3 and CN's II-XI intact bilaterally Extrem: Other: able to move all 4 extremities spontaneously General: Yes no pedal edema Results Labs 01/03/23 12:43 01/03/23 14:47 Labs: Laboratory Results - last 24 hr 01/03/23 01/03/23 01/03/23 12:43 14:44 14:47 MCV 100.7 H MCH 31.8 MCHC 31.5 RDW 14.5 Plt Count 225 D MPV 10.9 Immature Gran % (Auto) 0.6 H Neut % (Auto) 68.5 Lymph % (Auto) 18.5 L [place] % (Auto) 7.1 Eos % (Auto) 4.7 H Baso % (Auto) 0.6 Lymph # (Auto) 2.1 [place] # (Auto) 0.8 Eos # (Auto) 0.5 H Baso # (Auto) 0.1 Abs Immat Gran (auto) 0.07 H Absolute Neuts (auto) 7.7 Absolute Nucleated RBC 0.000 Nucleated RBC % (auto) 0.0 PT 11.2 INR 1.0 APTT 26.1 Anion Gap Estim Creat Clear Calc Estimated GFR Random Glucose Calcium Magnesium Total Bilirubin Direct Bilirubin AST ALT Alkaline Phosphatase Total Protein Albumin Urine Color Urine Appearance Urine pH Ur Specific [place] Urine Protein Urine Glucose (UA) Urine Ketones Urine Blood Urine Nitrite Ur Leukocyte Esterase Urine RBC Urine WBC Ur Squamous Epith Cells Urine Bacteria Hyaline Casts Stool Occult Blood POSITIVE 01/03/23 01/03/23 14:47 15:48 MCV MCH MCHC RDW Plt Count MPV Immature Gran % (Auto) Neut % (Auto) Lymph % (Auto) [place] % (Auto) Eos % (Auto) Baso % (Auto) Lymph # (Auto) [place] # (Auto) Eos # (Auto) Baso # (Auto) Abs Immat Gran (auto) Absolute Neuts (auto) Absolute Nucleated RBC Nucleated RBC % (auto) PT INR APTT Anion Gap 12 Estim Creat Clear Calc 21.3 Estimated GFR 27 Random Glucose 86 Calcium 9.4 Magnesium 2.0 Total Bilirubin 0.5 Direct Bilirubin 0.1 AST 17 ALT 16 Alkaline Phosphatase 60 Total Protein 6.3 L Albumin 3.8 Urine Color Yellow Urine Appearance Clear Urine pH 5.5 Ur Specific [place] 1.010 Urine Protein Negative Urine Glucose (UA) Negative Urine Ketones Negative Urine Blood Trace H Urine Nitrite Negative Ur Leukocyte Esterase Large (3+) H Urine RBC 0-2 Urine WBC 21-50 H Ur Squamous Epith Cells 3-5 Urine Bacteria None Seen Hyaline Casts 0-2 Stool Occult Blood Imaging Radiologist's Impressions: Impressions Abdomen/Pelvis CT 01/03/23 13:42 IMPRESSION: 1. Diffuse sigmoid and scattered rest of the colon diverticulosis without diverticulitis. 2. No radiopaque urolith or hydroureteronephrosis. Simple and complex renal cysts. 3. Old compression fracture lumbar spine. Fleischner guidelines were followed. Assessment and Plan (1) PRB (rectal bleeding): Status: Acute Plan This is an 82 year female with history of hypertension, hyperlipidemia, COPD, GERD, hypothyroidism, CKD, CHF who presents to the emergency department with 2 week history of a abdominal pain and diarrhea with 2 days of black stools Rectal bleeding CT scan of the abdomen/pelvis with no acute intra-abdominal pathology Hemoccult-positive although H/H within normal limits Hemodynamically stable at this time npo, IVF, IV PPI will check stool studies GI consult trend H/H hold asa Hypertension Blood pressure elevated Resume home medications when med rec completed Monitor blood pressure closely Hypothyroidism Continue home medication when med rec complete Unspecified CHF Hold diuretics while receiving IV fluid Monitor fluid status closely gerd omeprazole on hold while receiving IV PPI CKD4 renal function at baseline med rec pending at time of admit DVT prophylaxis-mechanical devices given rectal bleeding Code status-DNR/DNI Attending-Dr. Kohler Time Spent With Patient Time: Total time managing care of this patient today ____ minutes. Quality Stroke Does the patient have a stroke diagnosis?: No VTE Prior VTE?: No VTE Risk Level:: Medical - moderate - high VTE Device Contraindication: N/A - Device Ordered VTE Drug Contraindication: Treatment Not Indicated
[2023-01-03 16:49] VITALS: BP 181/73
[2023-01-03] MEDS: Famotidine/PF 20 MG/2 ML VIAL IVPUSH (17:10)
[2023-01-03] MEDS: 0.9 % Sodium Chloride 1,000 ML 100 ML IVCONT (17:10)
--- NOTE | 2023-01-03 18:17 | PHA.MEDREC ---
Pharmacy Consult ? Medication Reconciliation Pharmacy has completed the medication reconciliation. Pt had list and was able to confirm meds fromthat.
[2023-01-03 20:30] VITALS: BP 176/84
[2023-01-03] MEDS: hydrALAZINE HCl 20 MG/ML VIAL 5 MG IVPUSH (22:02)
[2023-01-03] MEDS: Acetaminophen 325 MG TABLET 650 MG PO (22:23)
[2023-01-03] MEDS: Atorvastatin Calcium 40 MG TABLET PO (22:23)
[2023-01-03] MEDS: Montelukast Sodium 10 MG TABLET PO (22:23)
[2023-01-03 22:44] VITALS: BP 158/76
[2023-01-04 03:24] VITALS: BP 147/75; PULSE 73; RESP 18; TEMP 36.2; O2SAT 96
[2023-01-04] MEDS: 0.9 % Sodium Chloride 1,000 ML 100 ML IVCONT (03:47)
[2023-01-04] MEDS: Acetaminophen 325 MG TABLET 650 MG PO ×2 (04:29→13:19)
[2023-01-04 05:56] LABS: Hematocrit 39.8 % (37.0-47.0); Hemoglobin 12.6 g/dl (12.0-16.0); Mean Corpuscular HGB Conc 31.7 g/dl (31.0-35.0); Mean Corpuscular Hemoglobin 32.1 pg (27.0-33.0); Mean Corpuscular Volume 101.3 fL (80.0-98.0); Platelet Count 189 X10*3/uL (160-400); Red Blood Count 3.93 X10*6/uL (4.20-5.50); Red Cell Distribution Width 14.4 % (11.0-16.0)
[2023-01-04] MEDS: ondansetron HCL 4 MG/2 ML VIAL IVPUSH (06:00)
[2023-01-04] MEDS: Levothyroxine Sodium 88 MCG TABLET PO (06:01)
[2023-01-04] MEDS: Pantoprazole Sodium 40 MG/10 ML VIAL IVPUSH (06:01)
[2023-01-04 06:19] LABS: Anion Gap 14 (12-20); Blood Urea Nitrogen 21 mg/dL (9-16); Calcium 9.5 mg/dL (8.4-10.2); Carbon Dioxide 18 mmol/L (22-29); Chloride 115 mmol/L (96-108); Creatinine Clr Calc Pharmacy 24.8; Estimated Glomerular Filt Rate 32; Glucose Random 73 mg/dL (60-115); Potassium 4.5 mmol/L (3.3-5.1); Sodium 142 mmol/L (135-145)
[2023-01-04 07:26] VITALS: BP 142/70; PULSE 60; RESP 18; TEMP 37.1; O2SAT 91
[2023-01-04] MEDS: Cyanocobalamin (Vitamin B-12) 1,000 MCG TABLET 1000 MCG PO (07:50)
[2023-01-04] MEDS: Sennosides 8.6 MG TABLET PO (07:50)
[2023-01-04] MEDS: Pregabalin 50 MG CAPSULE PO (07:50)
[2023-01-04] MEDS: Metoprolol Succinate ER 25 MG TAB.ER.24H PO (07:51)
[2023-01-04] MEDS: Loratadine 10 MG TABLET PO (07:51)
[2023-01-04] MEDS: Cholecalciferol (Vitamin D3) 25 MCG TABLET 50 MCG PO (07:51)
[2023-01-04] MEDS: Sertraline HCL 25 MG TABLET PO (07:51)
[2023-01-04] MEDS: calcitrioL 0.25 MCG CAPSULE 2 MCG PO (07:55)
--- NOTE | 2023-01-04 11:14 | HO.PM.IMPN ---
Subjective Subjective Date of Service: 01/04/23 Interval History: seen and examined this morning follow up for rectal bleeding no further bleeding overnight, had more firm stool this am still having crampy abdominal pain no fever, chills Review of Systems Review of Systems: Yes all other systems are reviewed and are negative Constitutional Constitutional: Denies chills and Denies fever(s) ENT Ears, Nose, Mouth, and Throat: Denies dizziness Cardiovascular Cardiovascular: Denies chest pain, Denies palpitations and Denies dyspnea Respiratory Respiratory: Denies cough and Denies dyspnea Gastrointestinal Gastrointestinal: Reports abdominal pain, Denies nausea and Denies vomiting Neurologic Neurologic: Denies dizziness Endocrine Endocrine: Denies palpitations Physical Exam Vital Signs: Vital Signs: Last Vital Signs Temp 98.8 F 01/04/23 07:26 Pulse 60 01/04/23 07:26 Resp 18 01/04/23 07:26 BP 142/70 H 01/04/23 07:26 Pulse Ox 91 L 01/04/23 07:26 O2 Del Method Room Air 01/04/23 07:26 BMI result Body Mass Index 30.1 Const: General: cooperative, comfortable, no acute distress, alert and awake Nutritional Appearance: average body habitus Orientation/consciousness: patient oriented x3 Resp: Other: scattered expiratory wheezing Effort & Inspection: normal respiratory effort and able to speak in complete sentences Cardio: Rate: regular rate Heart sounds: S1 normal heart sound present and S2 normal heart sound present GI: Other: no guarding, no rebound, +BS Inspection: No distended Palpation (GI): Soft to palpation and nontender Neuro: General: patient oriented x3 and CN's II-XI intact bilaterally Extrem: Other: able to move all 4 extremities spontaneously General: Yes no pedal edema Objective Data Active Medications Acetaminophen (Acetaminophen 325 Mg Tablet) 650 mg PO Q6H PRN PRN Reason: Pain, Mild (Pain Scale 1-3) Last Admin: 01/04/23 04:29 Dose: 650 mg Documented By: ZENON Albuterol/Ipratropium (Albuterol/Iprat 2.5/0.5mg 3 Ml Ampul.Neb) 3 ml INHALE RQ6H WHILE AWAKE PRN PRN Reason: shortness of breath/wheezing Atorvastatin Calcium (Atorvastatin Calcium 40 Mg Tablet) 40 mg PO BEDTIME [facility] Last Admin: 01/03/23 22:23 Dose: 40 mg Documented By: ZENON Calcitriol (Calcitriol 0.25 Mcg Capsule) 2 mcg PO SA [facility] Last Admin: 01/04/23 07:55 Dose: 2 mcg Documented By: CARLY Cyanocobalamin (Cyanocobalamin (Vitamin B-12) 1,000 Mcg Tablet) 1,000 mcg PO DAILY [facility] Last Admin: 01/04/23 07:50 Dose: 1,000 mcg Documented By: CARLY Fluticasone Propionate (Fluticasone Propionate Nasal 16 Gm [place]) 1 spray NOSTRIL-B DAILY PRN PRN Reason: Congestion Fluticasone/Vilanterol (Fluticasone/Vilanterol 100/25 Blst.W.Dev) 1 puff INHALE RDAILY [facility] Sodium Chloride (Ns) 1,000 mls @ 100 mls/hr IVCONT .Q10H [facility] Last Admin: 01/04/23 03:47 Dose: 100 mls/hr Documented By: ZENON Levothyroxine Sodium (Levothyroxine Sodium 88 Mcg Tablet) 88 mcg PO DAILY@0600 [facility] Last Admin: 01/04/23 06:01 Dose: 88 mcg Documented By: ZENON Loratadine (Loratadine 10 Mg Tablet) 10 mg PO DAILY [facility] Last Admin: 01/04/23 07:51 Dose: 10 mg Documented By: CARLY Metoprolol Succinate (Metoprolol Succinate Er 25 Mg Tab.Er.24h) 25 mg PO DAILY [facility]; Protocol Last Admin: 01/04/23 07:51 Dose: 25 mg Documented By: CARLY Montelukast Sodium (Montelukast Sodium 10 Mg Tablet) 10 mg PO BEDTIME [facility] Last Admin: 01/03/23 22:23 Dose: 10 mg Documented By: ZENON Morphine Sulfate (Morphine Sulfate 2 Mg/Ml Cartridge) 2 mg IVPUSH Q4H PRN; Protocol PRN Reason: Pain, Severe (Pain Scale 7-10) Ondansetron HCl (Ondansetron Hcl 4 Mg/2 Ml Vial) 4 mg IVPUSH Q8H PRN PRN Reason: Nausea and Vomiting Last Admin: 01/04/23 06:00 Dose: 4 mg Documented By: ZENON Pantoprazole Sodium (Pantoprazole Sodium 40 Mg/10 Ml Vial) 40 mg IVPUSH DAILY@0630 [facility] Last Admin: 01/04/23 06:01 Dose: 40 mg Documented By: ZENON Pharmacy Consult (Consult Rx Perform Med Rec) 1 each MISCELLANE ONCE PRN PRN Reason: Consult order Pregabalin (Pregabalin 50 Mg Capsule) 50 mg PO DAILY [facility] Last Admin: 01/04/23 07:50 Dose: 50 mg Documented By: CARLY Senna (Sennosides 8.6 Mg Tablet) 8.6 mg PO Q48H [facility] Last Admin: 01/04/23 07:50 Dose: 8.6 mg Documented By: CARLY Sertraline HCl (Sertraline Hcl 25 Mg Tablet) 25 mg PO DAILY [facility] Last Admin: 01/04/23 07:51 Dose: 25 mg Documented By: CARLY Sodium Chloride (0.9 % Sodium Chloride Flush 3 Ml Syringe) 3 ml IVFLUSH QSHIFT [facility] Last Admin: 01/04/23 08:14 Dose: Not Given Documented By: CARLY Non-Admin Reason: IV Running Tiotropium Jean (Tiotropium Jean 18 Mcg Cap.W.Dev) 1 puff INHALE RDAILY [facility] Vitamin D (Cholecalciferol (Vitamin D3) 25 Mcg Tablet) 50 mcg PO DAILY [facility] Last Admin: 01/04/23 07:51 Dose: 50 mcg Documented By: CARLY Labs 01/04/23 05:17 01/04/23 05:17 Labs: Laboratory Results - last 24 hr 01/03/23 01/03/23 01/03/23 12:43 14:44 14:47 MCV 100.7 H MCH 31.8 MCHC 31.5 RDW 14.5 Plt Count 225 D MPV 10.9 Immature Gran % (Auto) 0.6 H Neut % (Auto) 68.5 Lymph % (Auto) 18.5 L Jenkins % (Auto) 7.1 Eos % (Auto) 4.7 H Baso % (Auto) 0.6 Lymph # (Auto) 2.1 Jenkins # (Auto) 0.8 Eos # (Auto) 0.5 H Baso # (Auto) 0.1 Abs Immat Gran (auto) 0.07 H Absolute Neuts (auto) 7.7 Absolute Nucleated RBC 0.000 Nucleated RBC % (auto) 0.0 PT 11.2 INR 1.0 APTT 26.1 Anion Gap Estim Creat Clear Calc Estimated GFR Random Glucose Calcium Magnesium Total Bilirubin Direct Bilirubin AST ALT Alkaline Phosphatase Total Protein Albumin Urine Color Urine Appearance Urine pH Ur Specific [place] Urine Protein Urine Glucose (UA) Urine Ketones Urine Blood Urine Nitrite Ur Leukocyte Esterase Urine RBC Urine WBC Ur Squamous Epith Cells Urine Bacteria Hyaline Casts Stool Occult Blood POSITIVE 01/03/23 01/03/23 01/04/23 14:47 15:48 05:17 MCV 101.3 H MCH 32.1 MCHC 31.7 RDW 14.4 Plt Count 189 MPV 11.0 Immature Gran % (Auto) Neut % (Auto) Lymph % (Auto) Jenkins % (Auto) Eos % (Auto) Baso % (Auto) Lymph # (Auto) Jenkins # (Auto) Eos # (Auto) Baso # (Auto) Abs Immat Gran (auto) Absolute Neuts (auto) Absolute Nucleated RBC 0.000 Nucleated RBC % (auto) 0.0 PT INR APTT Anion Gap 12 Estim Creat Clear Calc 21.3 Estimated GFR 27 Random Glucose 86 Calcium 9.4 Magnesium 2.0 Total Bilirubin 0.5 Direct Bilirubin 0.1 AST 17 ALT 16 Alkaline Phosphatase 60 Total Protein 6.3 L Albumin 3.8 Urine Color Yellow Urine Appearance Clear Urine pH 5.5 Ur Specific [place] 1.010 Urine Protein Negative Urine Glucose (UA) Negative Urine Ketones Negative Urine Blood Trace H Urine Nitrite Negative Ur Leukocyte Esterase Large (3+) H Urine RBC 0-2 Urine WBC 21-50 H Ur Squamous Epith Cells 3-5 Urine Bacteria None Seen Hyaline Casts 0-2 Stool Occult Blood 01/04/23 05:17 MCV MCH MCHC RDW Plt Count MPV Immature Gran % (Auto) Neut % (Auto) Lymph % (Auto) Jenkins % (Auto) Eos % (Auto) Baso % (Auto) Lymph # (Auto) Jenkins # (Auto) Eos # (Auto) Baso # (Auto) Abs Immat Gran (auto) Absolute Neuts (auto) Absolute Nucleated RBC Nucleated RBC % (auto) PT INR APTT Anion Gap 14 Estim Creat Clear Calc 24.8 Estimated GFR 32 Random Glucose 73 Calcium 9.5 Magnesium Total Bilirubin Direct Bilirubin AST ALT Alkaline Phosphatase Total Protein Albumin Urine Color Urine Appearance Urine pH Ur Specific [place] Urine Protein Urine Glucose (UA) Urine Ketones Urine Blood Urine Nitrite Ur Leukocyte Esterase Urine RBC Urine WBC Ur Squamous Epith Cells Urine Bacteria Hyaline Casts Stool Occult Blood Assessment and Plan (1) PRB (rectal bleeding): Status: Acute Plan This is an 82 year female with history of hypertension, hyperlipidemia, COPD, GERD, hypothyroidism, CKD, CHF who presents to the emergency department with 2 week history of a abdominal pain and diarrhea with 2 days of black stools Rectal bleeding CT scan of the abdomen/pelvis with no acute intra-abdominal pathology Hemoccult-positive although H/H within normal limits. H/H has remained stable. will check stool studies no further diarrhea at this time discussed with GI - plan for EGD/colonoscopy on Friday - can eat today if able to tolerate, clears tomorrow and prep tomorrow night hold asa Hypertension bp improved Monitor blood pressure closely Hypothyroidism Continue home medication when med rec complete chronic unspecified CHF no acute exacerbation Hold diuretics for now Monitor fluid status closely gerd omeprazole on hold while receiving IV PPI CKD4 renal function at baseline COPD mild wheezing on exam. no sob resume home inhalers, prn breathing treatments DVT prophylaxis-mechanical devices given rectal bleeding Code status-DNR/DNI Attending-Dr. Dyer Time Spent With Patient Time: Total time managing care of this patient today ____ minutes. Quality Stroke Does the patient have a stroke diagnosis?: No VTE Prior VTE?: No VTE Risk Level:: Medical - moderate - high VTE Device Contraindication: N/A - Device Ordered VTE Drug Contraindication: Treatment Not Indicated
[2023-01-04] MEDS: Fluticasone/Vilanterol 100/25 BLST.W.DEV 1 PUFF INHALE (11:56)
[2023-01-04 12:00] VITALS: PULSE 63; RESP 16; O2SAT 100
[2023-01-04 15:07] LABS: Adenovirus F 40/41 Not Detected (Not Detect.); Astrovirus Not Detected (Not Detect.); Campylobacter Not Detected (Not Detect.); Cryptosporidium Not Detected (Not Detect.); Cyclospora cayetanensis Not Detected (Not Detect.); E. coli EAEC Not Detected (Not Detect.); E. coli EPEC Not Detected (Not Detect.); E. coli ETEC Not Detected (Not Detect.); E. coli STEC Not Detected (Not Detect.); Entamoeba histolytica Not Detected (Not Detect.); Giardia lamblia Not Detected (Not Detect.); Norovirus GI/GII Not Detected (Not Detect.); Plesiomonas shigelloides Not Detected (Not Detect.); Rotavirus A Not Detected (Not Detect.); Salmonella Not Detected (Not Detect.); Sapovirus Not Detected (Not Detect.); Shigella sp./EIEC Not Detected (Not Detect.); Vibrio Not Detected (Not Detect.); Vibrio Cholerae Not Detected (Not Detect.); Yersinia enterocolitica Not Detected (Not Detect.)
[2023-01-04 15:37] VITALS: BP 144/65; PULSE 56; RESP 18; TEMP 36.9; O2SAT 95
[2023-01-04] MEDS: 0.9 % Sodium Chloride Flush 3 ML SYRINGE IVFLUSH ×2 (16:24→21:11)
[2023-01-04 19:54] VITALS: BP 137/65; PULSE 58; RESP 18; TEMP 36.2; O2SAT 94
[2023-01-04] MEDS: Atorvastatin Calcium 40 MG TABLET PO (21:10)
[2023-01-04] MEDS: Montelukast Sodium 10 MG TABLET PO (21:10)
[2023-01-04 23:50] VITALS: BP 173/76; PULSE 58; RESP 18; TEMP 36.2; O2SAT 94
[2023-01-05 03:23] VITALS: BP 141/65; PULSE 61; RESP 18; TEMP 36.2; O2SAT 94
[2023-01-05] MEDS: Levothyroxine Sodium 88 MCG TABLET PO (06:21)
[2023-01-05] MEDS: Pantoprazole Sodium 40 MG/10 ML VIAL IVPUSH (06:21)
[2023-01-05 07:41] VITALS: BP 186/69; PULSE 78; RESP 18; TEMP 36.2; O2SAT 94
[2023-01-05 07:51] LABS: Anion Gap 8 (12-20); Blood Urea Nitrogen 21 mg/dL (9-16); Calcium 9.1 mg/dL (8.4-10.2); Carbon Dioxide 20 mmol/L (22-29); Chloride 116 mmol/L (96-108); Creatinine Clr Calc Pharmacy 20.7; Estimated Glomerular Filt Rate 26; Glucose Random 82 mg/dL (60-115); Potassium 4.3 mmol/L (3.3-5.1); Sodium 140 mmol/L (135-145)
[2023-01-05] MEDS: 0.9 % Sodium Chloride Flush 3 ML SYRINGE IVFLUSH ×3 (08:20→19:39)
[2023-01-05] MEDS: Cholecalciferol (Vitamin D3) 25 MCG TABLET 50 MCG PO (08:20)
[2023-01-05] MEDS: Pregabalin 50 MG CAPSULE PO (08:21)
[2023-01-05] MEDS: Sertraline HCL 25 MG TABLET PO (08:21)
[2023-01-05] MEDS: Metoprolol Succinate ER 25 MG TAB.ER.24H PO (08:21)
[2023-01-05] MEDS: Loratadine 10 MG TABLET PO (08:21)
[2023-01-05] MEDS: Cyanocobalamin (Vitamin B-12) 1,000 MCG TABLET 1000 MCG PO (08:21)
[2023-01-05 09:40] VITALS: BP 130/62; PULSE 74
--- NOTE | 2023-01-05 10:17 | HO.PM.IMPN ---
Subjective Subjective Date of Service: 01/05/23 Interval History: seen and examined this morning follow up for rectal bleeding having some cramping abdominal pain but no further rectal bleeding no fever, no chills Review of Systems Review of Systems: Yes all other systems are reviewed and are negative Constitutional Constitutional: Denies chills and Denies fever(s) Cardiovascular Cardiovascular: Denies chest pain, Denies palpitations and Denies dyspnea Respiratory Respiratory: Denies cough and Denies dyspnea Gastrointestinal Gastrointestinal: Reports abdominal pain, Denies diarrhea, Denies nausea and Denies vomiting Endocrine Endocrine: Denies palpitations Physical Exam Vital Signs: Vital Signs: Last Vital Signs Temp 97.1 F 01/05/23 07:41 Pulse 74 01/05/23 09:40 Resp 18 01/05/23 07:41 BP 130/62 01/05/23 09:40 Pulse Ox 94 01/05/23 07:41 O2 Del Method Room Air 01/05/23 07:41 BMI result Body Mass Index 30.1 Const: General: cooperative, comfortable, no acute distress, alert and awake Nutritional Appearance: average body habitus Orientation/consciousness: patient oriented x3 Resp: Other: scattered expiratory wheezing Effort & Inspection: normal respiratory effort and able to speak in complete sentences Auscultation: clear to auscultation bilaterally Cardio: Rate: regular rate Heart sounds: S1 normal heart sound present and S2 normal heart sound present GI: Other: no guarding, no rebound, +BS Inspection: No distended Palpation (GI): Soft to palpation and nontender Neuro: General: patient oriented x3 and CN's II-XI intact bilaterally Extrem: Other: able to move all 4 extremities spontaneously General: Yes no pedal edema Objective Data Active Medications Acetaminophen (Acetaminophen 325 Mg Tablet) 650 mg PO Q6H PRN PRN Reason: Pain, Mild (Pain Scale 1-3) Last Admin: 01/04/23 13:19 Dose: 650 mg Documented By: MARY JANE Albuterol/Ipratropium (Albuterol/Iprat 2.5/0.5mg 3 Ml Ampul.Neb) 3 ml INHALE RQ6H WHILE AWAKE PRN PRN Reason: shortness of breath/wheezing Atorvastatin Calcium (Atorvastatin Calcium 40 Mg Tablet) 40 mg PO BEDTIME [facility] Last Admin: 01/04/23 21:10 Dose: 40 mg Documented By: ZENON Calcitriol (Calcitriol 0.25 Mcg Capsule) 2 mcg PO SA [facility] Last Admin: 01/04/23 07:55 Dose: 2 mcg Documented By: CARLY Cyanocobalamin (Cyanocobalamin (Vitamin B-12) 1,000 Mcg Tablet) 1,000 mcg PO DAILY [facility] Last Admin: 01/05/23 08:21 Dose: 1,000 mcg Documented By: CARLY Fluticasone Propionate (Fluticasone Propionate Nasal 16 Gm [place]) 1 spray NOSTRIL-B DAILY PRN PRN Reason: Congestion Levothyroxine Sodium (Levothyroxine Sodium 88 Mcg Tablet) 88 mcg PO DAILY@0600 [facility] Last Admin: 01/05/23 06:21 Dose: 88 mcg Documented By: ZENON Loratadine (Loratadine 10 Mg Tablet) 10 mg PO DAILY [facility] Last Admin: 01/05/23 08:21 Dose: 10 mg Documented By: CARLY Metoprolol Succinate (Metoprolol Succinate Er 25 Mg Tab.Er.24h) 25 mg PO DAILY [facility]; Protocol Last Admin: 01/05/23 08:21 Dose: 25 mg Documented By: CARLY Montelukast Sodium (Montelukast Sodium 10 Mg Tablet) 10 mg PO BEDTIME [facility] Last Admin: 01/04/23 21:10 Dose: 10 mg Documented By: ZENON Pt Own (Trelegy (Ellipta )) 1 inhalation INHALE RDAILY [facility] Last Admin: 01/05/23 09:37 Dose: 1 inhalation Documented By: CARLY Ondansetron HCl (Ondansetron Hcl 4 Mg/2 Ml Vial) 4 mg IVPUSH Q8H PRN PRN Reason: Nausea and Vomiting Last Admin: 01/04/23 06:00 Dose: 4 mg Documented By: ZENON Pantoprazole Sodium (Pantoprazole Sodium 40 Mg/10 Ml Vial) 40 mg IVPUSH DAILY@0630 [facility] Last Admin: 01/05/23 06:21 Dose: 40 mg Documented By: ZENON Pharmacy Consult (Consult Rx Perform Med Rec) 1 each MISCELLANE ONCE PRN PRN Reason: Consult order Polyethylene Glycol/Electrolytes (Peg 3350/Na Sulf,Bicarb,Cl/Kcl 4,000 Ml Soln.Recon) 4,000 ml PO ONCE ONE Stop: 01/05/23 19:01 Pregabalin (Pregabalin 50 Mg Capsule) 50 mg PO DAILY [facility] Last Admin: 01/05/23 08:21 Dose: 50 mg Documented By: CARLY Senna (Sennosides 8.6 Mg Tablet) 8.6 mg PO Q48H [facility] Last Admin: 01/04/23 07:50 Dose: 8.6 mg Documented By: CARLY Sertraline HCl (Sertraline Hcl 25 Mg Tablet) 25 mg PO DAILY [facility] Last Admin: 01/05/23 08:21 Dose: 25 mg Documented By: CARLY Sodium Chloride (0.9 % Sodium Chloride Flush 3 Ml Syringe) 3 ml IVFLUSH QSHIFT [facility] Last Admin: 01/05/23 08:20 Dose: 3 ml Documented By: CARLY Vitamin D (Cholecalciferol (Vitamin D3) 25 Mcg Tablet) 50 mcg PO DAILY [facility] Last Admin: 01/05/23 08:20 Dose: 50 mcg Documented By: CARLY Labs 01/04/23 05:17 01/05/23 07:29 Labs: Laboratory Results - last 24 hr 01/04/23 01/05/23 09:07 07:29 Anion Gap 8 L Estim Creat Clear Calc 20.7 Estimated GFR 26 Random Glucose 82 Calcium 9.1 Stl C. cayetanensis PCR Not Detected Stool Rotavirus A PCR Not Detected Stl Adenov F 40/41 PCR Not Detected Stool Astrovirus (PCR) Not Detected Stool Campylobacter PCR Not Detected Stool Cryptosporidium PCR Not Detected Stl Sh Tox Pr E STEC PCR Not Detected Stool E coli O157 PCR Not applicable Stl Enterotoxigenic E PCR Not Detected Stool EPEC (PCR) Not Detected Stool EAEC (PCR) Not Detected Stl E. histolytica PCR Not Detected Stool Giardia Lamblia PCR Not Detected Stl P. shigelloides PCR Not Detected Stool Salmonella PCR Not Detected Stool Sapovirus (PCR) Not Detected Stl Shigella/EIEC PCR Not Detected St Y.enterocolitica PCR Not Detected Stool Vibrio (PCR) Not Detected Stl Vibrio cholerae PCR Not Detected Stl Norovirus GI/GII PCR Not Detected Microbiology Microbiology Results: Microbiology 01/03/23 Unknown Urine Culture - Final Urine clean catch - Urine oconnell top Escherichia coli Assessment and Plan (1) PRB (rectal bleeding): Status: Acute Plan This is an 82 year female with history of hypertension, hyperlipidemia, COPD, GERD, hypothyroidism, CKD, CHF who presents to the emergency department with 2 week history of a abdominal pain and diarrhea with 2 days of black stools Rectal bleeding CT scan of the abdomen/pelvis with no acute intra-abdominal pathology Hemoccult-positive although H/H within normal limits. H/H has remained stable. GI panel negative no further diarrhea at this time discussed with GI - plan for EGD/colonoscopy on Friday. npo at midnight hold asa Hypertension bp improved continue metoprolol Monitor blood pressure closely Hypothyroidism Continue synthroid chronic unspecified CHF no acute exacerbation Hold diuretics for now Monitor fluid status closely gerd omeprazole on hold while receiving IV PPI CKD4 renal function at baseline COPD no acute exacerbation resume home inhalers, prn breathing treatments DVT prophylaxis-mechanical devices/early ambulation given rectal bleeding Code status-DNR/DNI Attending-Dr. Kohler Time Spent With Patient Time: Total time managing care of this patient today ____ minutes. Quality Stroke Does the patient have a stroke diagnosis?: No VTE Prior VTE?: No VTE Risk Level:: Medical - moderate - high VTE Device Contraindication: N/A - Device Ordered VTE Drug Contraindication: Treatment Not Indicated
--- NOTE | 2023-01-05 10:54 | P.CNGI_ITS ---
History of Present Illness Data of Consult Service Date: 01/05/23 Requesting physician: Sesar Kohler Primary Care Provider: Alvarado Reynoso MD HPI Reason for consult: abdominal pain and rectal bleeding 82-year-old female with history of hypertension, hyperlipidemia, COPD, CHF and hypothyroidism who I am seeing for assessment for abdominal pain and altered stools and bowel habit Patient noted she was having loose stools daily for last 2 weeks with mid abdominal cramping pain worse after eating and relieved by passing stools. She also noted that the stools became black last few days but since been in hospital stools are brown. She has poor appetite along with nausea but no vomiting. She has been having bouts of such pain on and off last several months but never as bad as this also never had black stools before. ? She denies any associated fever or chills, She denies any takeout food, recent sick contacts, travel.? She takes a baby aspirin daily but denies the use of any other NSAIDs or alcohol but does admit to taking PO pred for back pain. She denies any dizziness, shortness of breath, chest pain. Endoscopy and colonoscopy approximately 5 years ago and were reportedly u nremarkable at that time LABS:' stool PCR neg HGB stable at around 12 g/dl Imaging: CT scan of the abdomen/pelvis: no evidence of acute inflammation or active blood loss, masses--diverticulosis, degen spinal disease, atherosclerosis Review of Systems Review of Systems: Constitutional : No Weight loss, No Fever, No Chills ENT/Mouth : No sore throat, No Rhinorrhea Eyes: No Swelling, No Redness Cardiovascular : No Chest Pain, No SOB, No Edema Respiratory : No Cough, No Sputum, No Wheezing Gastrointestinal : see HPI Genitourinary : NO Dysuria, No Urinary Frequency, No Hematuria, No Urgency Musculoskeletal : No joint pain, No Myalgias, No Joint Swelling Skin : No Skin Lesions, No rash Neuro : No Weakness, No Numbness, No Dizziness, No Headache Psych : No Anxiety/Panic, No Depression Heme/Lymph: No Bruising, No Lymphadenopathy Endocrine : No Polyuria, No Polydipsia All other systems reviewed and are negative. [facility] Past Medical History Medical History (Updated 01/05/23 @ 16:44 by Eriberto Ayala MD) CHF (congestive heart failure) CKD (chronic kidney disease) COPD (chronic obstructive pulmonary disease) GERD (gastroesophageal reflux disease) HLD (hyperlipidemia) HTN (hypertension) Hypothyroidism Social History Social History Alcohol intake: never Patient Tobacco Use Status: Former Tobacco user Meds Allergies Allergy/AdvReac Type Severity Reaction Status Date / Time topiramate Allergy Unknown Verified 01/04/23 07:10 morphine [Morphine] AdvReac Intermediate VOMITING Verified 01/04/23 07:10 hydroxyzine [From VISTARIL] AdvReac Mild NAUSEA & Verified 01/04/23 07:10 VOMITING primidone [PRIMIDONE] AdvReac Mild NAUSEA & Verified 01/04/23 07:10 VOMITING Active Medications: Current Medications Acetaminophen (Acetaminophen 325 Mg Tablet) 650 mg PO Q6H PRN PRN Reason: Pain, Mild (Pain Scale 1-3) Last Admin: 01/04/23 13:19 Dose: 650 mg Albuterol/Ipratropium (Albuterol/Iprat 2.5/0.5mg 3 Ml Ampul.Neb) 3 ml INHALE RQ6H WHILE AWAKE PRN PRN Reason: shortness of breath/wheezing Atorvastatin Calcium (Atorvastatin Calcium 40 Mg Tablet) 40 mg PO BEDTIME [facility] Last Admin: 01/04/23 21:10 Dose: 40 mg Calcitriol (Calcitriol 0.25 Mcg Capsule) 2 mcg PO SA [facility] Last Admin: 01/04/23 07:55 Dose: 2 mcg Cyanocobalamin (Cyanocobalamin (Vitamin B-12) 1,000 Mcg Tablet) 1,000 mcg PO DAILY [facility] Last Admin: 01/05/23 08:21 Dose: 1,000 mcg Fluticasone Propionate (Fluticasone Propionate Nasal 16 Gm [place]) 1 spray NOSTRIL-B DAILY PRN PRN Reason: Congestion Levothyroxine Sodium (Levothyroxine Sodium 88 Mcg Tablet) 88 mcg PO DAILY@0600 [facility] Last Admin: 01/05/23 06:21 Dose: 88 mcg Loratadine (Loratadine 10 Mg Tablet) 10 mg PO DAILY [facility] Last Admin: 01/05/23 08:21 Dose: 10 mg Metoprolol Succinate (Metoprolol Succinate Er 25 Mg Tab.Er.24h) 25 mg PO DAILY [facility]; Protocol Last Admin: 01/05/23 08:21 Dose: 25 mg Montelukast Sodium (Montelukast Sodium 10 Mg Tablet) 10 mg PO BEDTIME [facility] Last Admin: 01/04/23 21:10 Dose: 10 mg Pt Own (Trelegy (Ellipta )) 1 inhalation INHALE RDAILY [facility] Last Admin: 01/05/23 09:37 Dose: 1 inhalation Ondansetron HCl (Ondansetron Hcl 4 Mg/2 Ml Vial) 4 mg IVPUSH Q8H PRN PRN Reason: Nausea and Vomiting Last Admin: 01/04/23 06:00 Dose: 4 mg Pantoprazole Sodium (Pantoprazole Sodium 40 Mg/10 Ml Vial) 40 mg IVPUSH DAILY@0630 [facility] Last Admin: 01/05/23 06:21 Dose: 40 mg Pharmacy Consult (Consult Rx Perform Med Rec) 1 each MISCELLANE ONCE PRN PRN Reason: Consult order Polyethylene Glycol/Electrolytes (Peg 3350/Na Sulf,Bicarb,Cl/Kcl 4,000 Ml Soln.Recon) 4,000 ml PO ONCE ONE Stop: 01/05/23 19:01 Pregabalin (Pregabalin 50 Mg Capsule) 50 mg PO DAILY [facility] Last Admin: 01/05/23 08:21 Dose: 50 mg Senna (Sennosides 8.6 Mg Tablet) 8.6 mg PO Q48H [facility] Last Admin: 01/04/23 07:50 Dose: 8.6 mg Sertraline HCl (Sertraline Hcl 25 Mg Tablet) 25 mg PO DAILY [facility] Last Admin: 01/05/23 08:21 Dose: 25 mg Sodium Chloride (0.9 % Sodium Chloride Flush 3 Ml Syringe) 3 ml IVFLUSH QSHIFT [facility] Last Admin: 01/05/23 08:20 Dose: 3 ml Vitamin D (Cholecalciferol (Vitamin D3) 25 Mcg Tablet) 50 mcg PO DAILY [facility] Last Admin: 01/05/23 08:20 Dose: 50 mcg Home Medications Medication Instructions Recorded Confirmed Last Taken Type atorvastatin 40 mg tablet 40 mg PO BEDTIME 08/20/21 01/03/23 01/02/23 History fluticasone propionate 50 1 spray intranasal DAILY PRN 08/20/21 01/03/23 Unknown History mcg/actuation nasal Congestion spray,suspension levothyroxine 88 mcg tablet 88 mcg PO DAILY@0600 08/20/21 01/03/23 01/03/23 History omeprazole 40 mg capsule,delayed 40 mg PO BID 08/20/21 01/03/23 01/03/23 History release torsemide 20 mg tablet 20 mg PO 08/20/21 01/03/23 12/31/22 History aspirin 325 mg tablet 325 mg PO DAILY 02/19/22 01/03/23 01/03/23 History cetirizine 10 mg tablet 10 mg PO DAILY 05/09/22 01/03/23 01/03/23 History sennosides 8.6 mg tablet (senna) 8.6 mg PO Q48H 05/09/22 01/03/23 01/02/23 09:00 History sucralfate 1 gram tablet 1 g PO BID 05/09/22 01/03/23 01/03/23 History calcitriol 0.5 mcg capsule 2 mcg PO SA 01/03/23 01/03/23 12/28/22 History cholecalciferol (vitamin D3) 50 50 mcg PO DAILY 01/03/23 01/03/23 01/03/23 History mcg (2,000 unit) tablet cyanocobalamin (vitamin B-12) 1,000 mcg PO DAILY 01/03/23 01/03/23 01/03/23 History 1,000 mcg tablet fluticasone fur. 100 mcg-umeclid 1 ea inhalation DAILY 01/03/23 01/03/23 01/03/23 History 62.5 mcg-vilant 25 mcg inhalat.powder (Trelegy Ellipta) halobetasol propionate 0.05 % 1 appl topical BID PRN Rash 01/03/23 01/03/23 Unknown History topical cream metoprolol succinate 25 mg 25 mg PO DAILY 01/03/23 01/03/23 01/03/23 History tablet,extended release 24 hr metronidazole 0.75 % topical cream 1 appl topical DAILY PRN Rash 01/03/23 01/03/23 Unknown History montelukast 10 mg tablet 10 mg PO BEDTIME 01/03/23 01/03/23 01/02/23 History potassium chloride 20 mEq 20 meq PO 01/03/23 01/03/23 12/31/22 History tablet,extended release pregabalin 50 mg capsule 50 mg PO DAILY 01/03/23 01/03/23 01/03/23 History sertraline 25 mg tablet 25 mg PO DAILY 01/03/23 01/03/23 01/03/23 History Physical Exam Vital Signs: Vital Signs: Last Vital Signs Temp 97.1 F 01/05/23 07:41 Pulse 74 01/05/23 09:40 Resp 18 01/05/23 07:41 BP 130/62 01/05/23 09:40 Pulse Ox 94 01/05/23 07:41 O2 Del Method Room Air 01/05/23 07:41 BMI result Body Mass Index 30.1 EXAM: GENERAL: The patient is well developed and nontoxic. VITAL SIGNS:see workflow HEENT: Nonicteric sclerae, PERRLA, EOMI. Oropharynx clear. Moist mucous membranes. Conjunctivae appear well perfused. No thyroid mass. CHEST: Chest wall is nontender. HEART: Regular rate and rhythm without murmurs. LUNGS: Clear to auscultation bilaterally. ABDOMEN: Soft, positive bowel sounds, nontender, no organomegaly.no flank tenderness SKIN: No rash, no excessive bruising, petechiae, or purpura. NEUROLOGIC: Cranial nerves II-XII intact without motor/sensory deficit. psych-nml affect Results Labs 01/04/23 05:17 01/05/23 07:29 Labs: BMP 01/05/23 07:29 Sodium 140 Potassium 4.3 Chloride 116 H Carbon Dioxide 20 L BUN 21 H Creatinine 1.85 H Calcium 9.1 Microbiology Microbiology Results: Microbiology 01/03/23 Unknown Urine clean catch - Urine oconnell top Urine Culture - Final Escherichia coli Imaging CT scan - abdomen: Attestation: I personally reviewed and interpreted this imaging study as follows: My impression: diverticulosis, wedge fracture sine, atherosclerosis, Assessment and Plan (1) Altered bowel function: Status: Acute (2) Black stools: Status: Acute Plan 1/ Abdominal pain, altered bowel habits with black stools albeit stable H/H, many differentials - PUD< ischemia, esophagitis, gastritis, colonic lesion PLAN; 1/ Plan for egd and colon tomorrow for further assessment 2/ can cont with PPI meantime Time Spent With Patient Time: Total time managing care of this patient today ____ minutes. Procedures Date of Service Date of Service: 01/05/23
[2023-01-05] MEDS: Acetaminophen 325 MG TABLET 650 MG PO (13:32)
[2023-01-05 15:30] VITALS: BP 140/80; PULSE 72; RESP 17; TEMP 36.6; O2SAT 92
--- NOTE | 2023-01-05 16:41 | MHC.CM.PN ---
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 COPY OF CARD OBTAINED DC PLAN, HOME VIA FAMILY TRANSPORT
[2023-01-05] MEDS: PEG 3350/Na Sulf,Bicarb,Cl/KCL 4,000 ML SOLN.RECON 4000 ML PO (18:22)
[2023-01-05 19:03] VITALS: BP 151/73; PULSE 67; RESP 19; TEMP 36.3; O2SAT 94
[2023-01-05] MEDS: Montelukast Sodium 10 MG TABLET PO (21:31)
[2023-01-05] MEDS: Atorvastatin Calcium 40 MG TABLET PO (21:31)
[2023-01-05 23:40] VITALS: BP 148/75; PULSE 58; RESP 16; TEMP 36.1; O2SAT 92
[2023-01-06] MEDS: Levothyroxine Sodium 88 MCG TABLET PO (05:28)
[2023-01-06] MEDS: Pantoprazole Sodium 40 MG/10 ML VIAL IVPUSH (05:30)
[2023-01-06 07:28] VITALS: BP 138/70; PULSE 67; RESP 17; TEMP 36.4; O2SAT 95
[2023-01-06] MEDS: cefTRIAXone sodium 1 GM in 0.9 % Sodium Chloride 50 ML IV (09:00)
[2023-01-06] MEDS: Metoprolol Succinate ER 25 MG TAB.ER.24H PO (09:04)
[2023-01-06] MEDS: Sertraline HCL 25 MG TABLET PO (09:04)
[2023-01-06] MEDS: Pregabalin 50 MG CAPSULE PO (09:04)
[2023-01-06] MEDS: Loratadine 10 MG TABLET PO (09:04)
[2023-01-06] MEDS: Cholecalciferol (Vitamin D3) 25 MCG TABLET 50 MCG PO (09:04)
[2023-01-06] MEDS: Sennosides 8.6 MG TABLET PO (09:04)
[2023-01-06] MEDS: 0.9 % Sodium Chloride Flush 3 ML SYRINGE IVFLUSH (09:29)
[2023-01-06] MEDS: Cyanocobalamin (Vitamin B-12) 1,000 MCG TABLET 1000 MCG PO (09:32)
[2023-01-06 09:48] VITALS: PULSE 67; RESP 17
[2023-01-06 10:18] VITALS: BP 189/80; PULSE 70; RESP 16; TEMP 36.2; O2SAT 94
--- NOTE | 2023-01-06 11:28 | MHC.SHP ---
Pre-Procedural Eval Section A Date of Service: 01/06/23 The patient is an INPATIENT: Yes The History & Physical has been completed within 30 days and I have reviewed it.: Yes Section B Chief Complaint: Abdominal pain, rectal bleeding Allergies: Allergies Allergy/AdvReac Type Severity Reaction Status Date / Time topiramate Allergy Unknown Verified 01/04/23 07:10 morphine [Morphine] AdvReac Intermediate VOMITING Verified 01/04/23 07:10 hydroxyzine [From VISTARIL] AdvReac Mild NAUSEA & Verified 01/04/23 07:10 VOMITING primidone [PRIMIDONE] AdvReac Mild NAUSEA & Verified 01/04/23 07:10 VOMITING Plan Diagnosis/Plan: Unchanged I have reviewed the history and physical and performed a pertinent physical examination on my patient. No changes have occurred unless specified. EGd, colonoscopy Time Spent With Patient Time: Total time managing care of this patient today ____ minutes.
--- NOTE | 2023-01-06 11:28 | W.PM.OPN ---
Operative Note Operative Note Date of Service: 01/06/23 Narrative: Operative Information Procedure Description: EGD, Colonoscopy Indication: abn bowle habit, black stools Anesthesia: MAC FLEXIBLE TRANSORAL UPPER GASTROINTESTINAL ENDOSCOPY AND COLONOSCOPY PROCEDURE NOTE UPPER ENDOSCOPY Consent: Indications for the procedure and potential complications of bleeding, perforation, reaction to medications and missed diagnosis were discussed with the patient and informed consent was obtained. Instrument: Olympus GIF H 190 J mid size upper endoscope Monitoring: Vital signs and clinical assessment, continuous EKG monitoring, Pulse oximetry, Carbon Dioxide monitoring and blood pressure monitoring were done throughout the procedure. Procedure: The patient was placed in the left lateral decubitis position and pre-procedure medications were administered and a bite block was placed. The endoscope was inserted into the mouth and advanced under direct vision to the third part of duodenum. A careful inspection was made as the upper endoscope was withdrawn including a retroflexed examination of the proximal stomach; Findings and interventions are described below. Findings: Larynx:normal Esophagus: GE junction at 35 cm, diaphragm hiatus at 35 cm, normal mucosa Stomach: Patchy erythema. Biopsies were obtained. Grade 2 flap valve on retroflexed examination of the cardia. bx were taken Duodenum: Normal bulb and descending duodenum, v small non bleeding AVM noted Intervention: Biopsies as noted above COLONOSCOPY Instrument: Olympus variable stiffness pediatric scope 190L Colonoscopy Monitoring: Vital signs and clinical assessment, continuous EKG monitoring, Pulse oximetry, Carbon Dioxide monitoring and blood pressure monitoring were done throughout the procedure. Colon withdrawal time was 10 minutes. Procedure: The patient was placed in the left lateral decubitis position and pre-procedure medications were administered. After a digital rectal examination of the ano-rectum, the video colonoscope was inserted into the rectum and advanced through the colon to the cecum/TI. The colonoscope was slowly withdrawn in a retrograde panoramic fashion and the colon mucosa was carefully examined including a retroflexed view of the rectum. Findings and interventions are described below. Procedure Difficulty: easy Findings: No blood seen. mild melanosis coli Terminal Ileum-normal Cecum:normal Ascending Colon: normal Transverse Colon -normal Descending Colon:normal Sigmoid Colon:moderate severe diverticulosis Rectum: Retroflexion with small internal hemorrhoids, grade I Anorectum - normal Colon preparation: [place] Bowel Preparation Scale Right colon; 2 Transverse colon: 3 Left colon; 3 (0 = Unprepared colon segment with mucosa not seen due to solid stool that cannot be cleared. 1 = Portion of mucosa of the colon segment seen, but other areas of the colon segment not well seen due to staining, residual stool and/or opaque liquid. 2 = Minor amount of residual staining, small fragments of stool and/or opaque liquid, but mucosa of colon segment seen well. 3 = Entire mucosa of colon segment seen well with no residual staining, small fragments of stool or opaque liquid) Impression and Post Procedure Diagnosis: Endoscopy Findings: gastritis Colonoscopy Findings: internal hemorrhoids diverticular disease melanosis coli Plan: Await Pathology results No active bleeding seen, or altered blood debris, HGB has been stable, ok to go home and f/u as o/p, can consider capsule if HGB does start to trend down High fiber diet leaflet avoid straining at stool, epsom salts and sitz bath, anusol supps or cream Above findings were reviewed with the patient and relevant handouts were provided if indicated.
--- NOTE | 2023-01-06 11:39 | P.CONAN_ITS ---
HPI - Anesthesia Eval Consult details Narrative: for EGD and colonoscopy [facility] Active Problems Active Problems: All Active Problems (Updated 01/05/23 @ 16:44 by Eriberto Ayala MD) Black stools (Acute) Altered bowel function (Acute) PRB (rectal bleeding) (Acute) Cellulitis (Acute) Past Medical History Medical History (Updated 01/05/23 @ 16:44 by Eriberto Ayala MD) CHF (congestive heart failure) CKD (chronic kidney disease) COPD (chronic obstructive pulmonary disease) GERD (gastroesophageal reflux disease) HLD (hyperlipidemia) HTN (hypertension) Hypothyroidism Family History Family history of problems with anesthesia: No Surgical History History of Problems with Anesthesia: No Social History Social History Alcohol intake: never Patient Tobacco Use Status: Former Tobacco user Second Hand Smoke Exposure: No service: No Current occupational status: retired [employer] Allergies Allergy/AdvReac Type Severity Reaction Status Date / Time topiramate Allergy Unknown Verified 01/04/23 07:10 morphine [Morphine] AdvReac Intermediate VOMITING Verified 01/04/23 07:10 hydroxyzine [From [facility]] AdvReac Mild NAUSEA & Verified 01/04/23 07:10 VOMITING primidone [PRIMIDONE] AdvReac Mild NAUSEA & Verified 01/04/23 07:10 VOMITING Active Medications: Current Medications Acetaminophen (Acetaminophen 325 Mg Tablet) 650 mg PO Q6H PRN PRN Reason: Pain, Mild (Pain Scale 1-3) Last Admin: 01/05/23 13:32 Dose: 650 mg Albuterol/Ipratropium (Albuterol/Iprat 2.5/0.5mg 3 Ml Ampul.Neb) 3 ml INHALE RQ6H WHILE AWAKE PRN PRN Reason: shortness of breath/wheezing Atorvastatin Calcium (Atorvastatin Calcium 40 Mg Tablet) 40 mg PO BEDTIME [facility] Last Admin: 01/05/23 21:31 Dose: 40 mg Calcitriol (Calcitriol 0.25 Mcg Capsule) 2 mcg PO SA [facility] Last Admin: 01/04/23 07:55 Dose: 2 mcg Cyanocobalamin (Cyanocobalamin (Vitamin B-12) 1,000 Mcg Tablet) 1,000 mcg PO DAILY [facility] Last Admin: 01/06/23 09:32 Dose: 1,000 mcg Fluticasone Propionate (Fluticasone Propionate Nasal 16 Gm [place]) 1 spray NOSTRIL-B DAILY PRN PRN Reason: Congestion Ceftriaxone Sodium 1 gm/ (Sodium Chloride) 50 mls @ 100 mls/hr IV Q24H [facility] Last Infusion: 01/06/23 09:32 Dose: Infused Levothyroxine Sodium (Levothyroxine Sodium 88 Mcg Tablet) 88 mcg PO DAILY@0600 [facility] Last Admin: 01/06/23 05:28 Dose: 88 mcg Loratadine (Loratadine 10 Mg Tablet) 10 mg PO DAILY [facility] Last Admin: 01/06/23 09:04 Dose: 10 mg Metoprolol Succinate (Metoprolol Succinate Er 25 Mg Tab.Er.24h) 25 mg PO DAILY [facility]; Protocol Last Admin: 01/06/23 09:04 Dose: 25 mg Montelukast Sodium (Montelukast Sodium 10 Mg Tablet) 10 mg PO BEDTIME [facility] Last Admin: 01/05/23 21:31 Dose: 10 mg Pt Own (Trelegy (Ellipta )) 1 inhalation INHALE RDAILY [facility] Last Admin: 01/06/23 09:48 Dose: 1 inhalation Ondansetron HCl (Ondansetron Hcl 4 Mg/2 Ml Vial) 4 mg IVPUSH Q8H PRN PRN Reason: Nausea and Vomiting Last Admin: 01/04/23 06:00 Dose: 4 mg Pantoprazole Sodium (Pantoprazole Sodium 40 Mg/10 Ml Vial) 40 mg IVPUSH DAILY@0630 [facility] Last Admin: 01/06/23 05:30 Dose: 40 mg Pharmacy Consult (Consult Rx Perform Med Rec) 1 each MISCELLANE ONCE PRN PRN Reason: Consult order Pregabalin (Pregabalin 50 Mg Capsule) 50 mg PO DAILY [facility] Last Admin: 01/06/23 09:04 Dose: 50 mg Senna (Sennosides 8.6 Mg Tablet) 8.6 mg PO Q48H [facility] Last Admin: 01/06/23 09:04 Dose: 8.6 mg Sertraline HCl (Sertraline Hcl 25 Mg Tablet) 25 mg PO DAILY [facility] Last Admin: 01/06/23 09:04 Dose: 25 mg Sodium Chloride (0.9 % Sodium Chloride Flush 3 Ml Syringe) 3 ml IVFLUSH QSHIFT [facility] Last Admin: 01/06/23 09:29 Dose: 3 ml Vitamin D (Cholecalciferol (Vitamin D3) 25 Mcg Tablet) 50 mcg PO DAILY [facility] Last Admin: 01/06/23 09:04 Dose: 50 mcg Home Medications Medication Instructions Recorded Confirmed Last Taken Type atorvastatin 40 mg tablet 40 mg PO BEDTIME 08/20/21 01/03/23 01/02/23 History fluticasone propionate 50 1 spray intranasal DAILY PRN 08/20/21 01/03/23 Unknown History mcg/actuation nasal Congestion spray,suspension levothyroxine 88 mcg tablet 88 mcg PO DAILY@0600 08/20/21 01/03/23 01/03/23 History omeprazole 40 mg capsule,delayed 40 mg PO BID 08/20/21 01/03/23 01/03/23 History release torsemide 20 mg tablet 20 mg PO TUSA 08/20/21 01/03/23 12/31/22 History aspirin 325 mg tablet 325 mg PO DAILY 02/19/22 01/03/23 01/03/23 History cetirizine 10 mg tablet 10 mg PO DAILY 05/09/22 01/03/23 01/03/23 History sennosides 8.6 mg tablet (senna) 8.6 mg PO Q48H 05/09/22 01/03/23 01/02/23 09:00 History sucralfate 1 gram tablet 1 g PO BID 05/09/22 01/03/23 01/03/23 History calcitriol 0.5 mcg capsule 2 mcg PO SA 01/03/23 01/03/23 12/28/22 History cholecalciferol (vitamin D3) 50 50 mcg PO DAILY 01/03/23 01/03/23 01/03/23 History mcg (2,000 unit) tablet cyanocobalamin (vitamin B-12) 1,000 mcg PO DAILY 01/03/23 01/03/23 01/03/23 History 1,000 mcg tablet fluticasone fur. 100 mcg-umeclid 1 ea inhalation DAILY 01/03/23 01/03/23 01/03/23 History 62.5 mcg-vilant 25 mcg inhalat.powder (Trelegy Ellipta) halobetasol propionate 0.05 % 1 appl topical BID PRN Rash 01/03/23 01/03/23 Unknown History topical cream metoprolol succinate 25 mg 25 mg PO DAILY 01/03/23 01/03/23 01/03/23 History tablet,extended release 24 hr metronidazole 0.75 % topical cream 1 appl topical DAILY PRN Rash 01/03/23 01/03/23 Unknown History montelukast 10 mg tablet 10 mg PO BEDTIME 01/03/23 01/03/23 01/02/23 History potassium chloride 20 mEq 20 meq PO TUSA 01/03/23 01/03/23 12/31/22 History tablet,extended release pregabalin 50 mg capsule 50 mg PO DAILY 01/03/23 01/03/23 01/03/23 History sertraline 25 mg tablet 25 mg PO DAILY 01/03/23 01/03/23 01/03/23 History Exam Exam Date and Time: January 06, 2023 113 Height,Weight and Vital Signs: Height 5 ft Weight 69.9 kg Last Vital Signs Temp 97.1 F 01/06/23 10:18 Pulse 70 01/06/23 10:18 Resp 16 01/06/23 10:18 BP 189/80 H 01/06/23 10:18 Pulse Ox 94 01/06/23 10:18 O2 Del Method Room Air 01/06/23 10:18 Pertinent Lab Results Pertinent Lab Results: Laboratory Tests 01/03/23 01/03/23 01/03/23 12:43 14:44 14:47 WBC 11.3 H RBC 4.06 L Hgb 12.9 Hct 40.9 MCV 100.7 H MCH 31.8 MCHC 31.5 RDW 14.5 Plt Count 225 D MPV 10.9 Immature Gran % (Auto) 0.6 H Neut % (Auto) 68.5 Lymph % (Auto) 18.5 L [place] % (Auto) 7.1 Eos % (Auto) 4.7 H Baso % (Auto) 0.6 Lymph # (Auto) 2.1 [place] # (Auto) 0.8 Eos # (Auto) 0.5 H Baso # (Auto) 0.1 Abs Immat Gran (auto) 0.07 H Absolute Neuts (auto) 7.7 Absolute Nucleated RBC 0.000 Nucleated RBC % (auto) 0.0 PT 11.2 INR 1.0 APTT 26.1 Sodium Potassium Chloride Carbon Dioxide Anion Gap BUN Creatinine Estim Creat Clear Calc Estimated GFR Random Glucose Calcium Magnesium Total Bilirubin Direct Bilirubin AST ALT Alkaline Phosphatase Total Protein Albumin Urine Color Urine Appearance Urine pH Ur Specific [place] Urine Protein Urine Glucose (UA) Urine Ketones Urine Blood Urine Nitrite Ur Leukocyte Esterase Urine RBC Urine WBC Ur Squamous Epith Cells Urine Bacteria Hyaline Casts Stool Occult Blood POSITIVE Stl C. cayetanensis PCR Stool Rotavirus A PCR Stl Adenov F PCR Stool Astrovirus (PCR) Stool Campylobacter PCR Stool Cryptosporidium PCR Stl Sh Tox Pr E STEC PCR Stool E coli O157 PCR Stl Enterotoxigenic E PCR Stool EPEC (PCR) Stool EAEC (PCR) Stl E. histolytica PCR Stool Giardia Lamblia PCR Stl P. shigelloides PCR Stool Salmonella PCR Stool Sapovirus (PCR) Stl Shigella/EIEC PCR St Y.enterocolitica PCR Stool Vibrio (PCR) Stl Vibrio cholerae PCR Stl Norovirus GI/GII PCR 01/03/23 01/03/23 01/04/23 14:47 15:48 05:17 WBC 10.0 RBC 3.93 L Hgb 12.6 Hct 39.8 MCV 101.3 H MCH 32.1 MCHC 31.7 RDW 14.4 Plt Count 189 MPV 11.0 Immature Gran % (Auto) Neut % (Auto) Lymph % (Auto) [place] % (Auto) Eos % (Auto) Baso % (Auto) Lymph # (Auto) [place] # (Auto) Eos # (Auto) Baso # (Auto) Abs Immat Gran (auto) Absolute Neuts (auto) Absolute Nucleated RBC 0.000 Nucleated RBC % (auto) 0.0 PT INR APTT Sodium 140 Potassium 4.4 Chloride 112 H Carbon Dioxide 20 L Anion Gap 12 BUN 26 H Creatinine 1.80 H Estim Creat Clear Calc 21.3 Estimated GFR 27 Random Glucose 86 Calcium 9.4 Magnesium 2.0 Total Bilirubin 0.5 Direct Bilirubin 0.1 AST 17 ALT 16 Alkaline Phosphatase 60 Total Protein 6.3 L Albumin 3.8 Urine Color Yellow Urine Appearance Clear Urine pH 5.5 Ur Specific [place] 1.010 Urine Protein Negative Urine Glucose (UA) Negative Urine Ketones Negative Urine Blood Trace H Urine Nitrite Negative Ur Leukocyte Esterase Large (3+) H Urine RBC 0-2 Urine WBC 21-50 H Ur Squamous Epith Cells 3-5 Urine Bacteria None Seen Hyaline Casts 0-2 Stool Occult Blood Stl C. cayetanensis PCR Stool Rotavirus A PCR Stl Adenov F PCR Stool Astrovirus (PCR) Stool Campylobacter PCR Stool Cryptosporidium PCR Stl Sh Tox Pr E STEC PCR Stool E coli O157 PCR Stl Enterotoxigenic E PCR Stool EPEC (PCR) Stool EAEC (PCR) Stl E. histolytica PCR Stool Giardia Lamblia PCR Stl P. shigelloides PCR Stool Salmonella PCR Stool Sapovirus (PCR) Stl Shigella/EIEC PCR St Y.enterocolitica PCR Stool Vibrio (PCR) Stl Vibrio cholerae PCR Stl Norovirus GI/GII PCR 01/04/23 01/04/23 01/05/23 05:17 09:07 07:29 WBC RBC Hgb Hct MCV MCH MCHC RDW Plt Count MPV Immature Gran % (Auto) Neut % (Auto) Lymph % (Auto) [place] % (Auto) Eos % (Auto) Baso % (Auto) Lymph # (Auto) [place] # (Auto) Eos # (Auto) Baso # (Auto) Abs Immat Gran (auto) Absolute Neuts (auto) Absolute Nucleated RBC Nucleated RBC % (auto) PT INR APTT Sodium 142 140 Potassium 4.5 4.3 Chloride 115 H 116 H Carbon Dioxide 18 L 20 L Anion Gap 14 8 L BUN 21 H 21 H Creatinine 1.55 H 1.85 H Estim Creat Clear Calc 24.8 20.7 Estimated GFR 32 26 Random Glucose 73 82 Calcium 9.5 9.1 Magnesium Total Bilirubin Direct Bilirubin AST ALT Alkaline Phosphatase Total Protein Albumin Urine Color Urine Appearance Urine pH Ur Specific [place] Urine Protein Urine Glucose (UA) Urine Ketones Urine Blood Urine Nitrite Ur Leukocyte Esterase Urine RBC Urine WBC Ur Squamous Epith Cells Urine Bacteria Hyaline Casts Stool Occult Blood Stl C. cayetanensis PCR Not Detected Stool Rotavirus A PCR Not Detected Stl Adenov F PCR Not Detected Stool Astrovirus (PCR) Not Detected Stool Campylobacter PCR Not Detected Stool Cryptosporidium PCR Not Detected Stl Sh Tox Pr E STEC PCR Not Detected Stool E coli O157 PCR Not applicable Stl Enterotoxigenic E PCR Not Detected Stool EPEC (PCR) Not Detected Stool EAEC (PCR) Not Detected Stl E. histolytica PCR Not Detected Stool Giardia Lamblia PCR Not Detected Stl P. shigelloides PCR Not Detected Stool Salmonella PCR Not Detected Stool Sapovirus (PCR) Not Detected Stl Shigella/EIEC PCR Not Detected St Y.enterocolitica PCR Not Detected Stool Vibrio (PCR) Not Detected Stl Vibrio cholerae PCR Not Detected Stl Norovirus GI/GII PCR Not Detected Airway Mallampati Class: I TM Dist: >3cm Neck ROM: Full Denture: Upper and Lower Heart: ok Lungs: ok Other: very frail Assessment and Plan Assessment Anesthesia Assessment: Anesthesia Plan Discussed and Chart Reviewed Final Anesthetic Review Family History of Problems with Anesthesia: No History of Problems with Anesthesia: No NPO: Yes ASA Class: IV Final Preanesthetic Review: No Changes in Pt Med Stat, Meds/Allgs Chart Reviewed, Consent Obtained/Reviewed, Anes Risks/Benef Reviewed and DNR Form (If Appl.) Patient Risk: High Procedure Risk: Intermediate Anesthetic Plan Anesthetic Plan: MAC: and Agree w/ Assess. and Plan Disposition: Standard PACU
[2023-01-06 12:38] VITALS: BP 134/50; PULSE 80; RESP 18; TEMP 36.3; O2SAT 92
[2023-01-06 12:53] VITALS: BP 181/65; PULSE 77; RESP 15; TEMP 36.4; O2SAT 93
--- NOTE | 2023-01-06 13:32 | P.PNIM_ITS ---
Subjective Subjective Date of Service: 01/06/23 Interval History: seen and examined this morning follow up for rectal bleeding having some cramping abdominal pain but no further rectal bleeding no fever, no chills Review of Systems Review of Systems: Yes all other systems are reviewed and are negative Constitutional Constitutional: Denies chills and Denies fever(s) Cardiovascular Cardiovascular: Denies chest pain, Denies palpitations and Denies dyspnea Respiratory Respiratory: Denies cough and Denies dyspnea Gastrointestinal Gastrointestinal: Reports abdominal pain, Denies diarrhea, Denies nausea and Denies vomiting Endocrine Endocrine: Denies palpitations Physical Exam Vital Signs: Vital Signs: Last Vital Signs Temp 97.6 F 01/06/23 12:53 Pulse 77 01/06/23 12:53 Resp 15 01/06/23 12:53 BP 181/65 H 01/06/23 12:53 Pulse Ox 93 01/06/23 12:53 O2 Del Method Room Air 01/06/23 12:53 BMI result Body Mass Index 30.1 Appearing in no acute distress lung sounds are clear to auscultation heart regular rate rhythm, clear S1, S2 positive bowel sounds, abdomen is soft, nontender neuro patient is alert x3, no focal deficits Objective Data Active Medications Acetaminophen (Acetaminophen 325 Mg Tablet) 650 mg PO Q6H PRN PRN Reason: Pain, Mild (Pain Scale 1-3) Last Admin: 01/05/23 13:32 Dose: 650 mg Documented By: CARLY Albuterol/Ipratropium (Albuterol/Iprat 2.5/0.5mg 3 Ml Ampul.Neb) 3 ml INHALE RQ6H WHILE AWAKE PRN PRN Reason: shortness of breath/wheezing Atorvastatin Calcium (Atorvastatin Calcium 40 Mg Tablet) 40 mg PO BEDTIME [facility] Last Admin: 01/05/23 21:31 Dose: 40 mg Documented By: DESTINY Calcitriol (Calcitriol 0.25 Mcg Capsule) 2 mcg PO SA [facility] Last Admin: 01/04/23 07:55 Dose: 2 mcg Documented By: CARLY Cyanocobalamin (Cyanocobalamin (Vitamin B-12) 1,000 Mcg Tablet) 1,000 mcg PO DAILY [facility] Last Admin: 01/06/23 09:32 Dose: 1,000 mcg Documented By: MAURICIO Fluticasone Propionate (Fluticasone Propionate Nasal 16 Gm [place]) 1 spray NOSTRIL-B DAILY PRN PRN Reason: Congestion Ceftriaxone Sodium 1 gm/ (Sodium Chloride) 50 mls @ 100 mls/hr IV Q24H [facility] Last Infusion: 01/06/23 09:32 Dose: 0 mls/hr Documented By: MAURICIO Levothyroxine Sodium (Levothyroxine Sodium 88 Mcg Tablet) 88 mcg PO DAILY@0600 [facility] Last Admin: 01/06/23 05:28 Dose: 88 mcg Documented By: DESTINY Loratadine (Loratadine 10 Mg Tablet) 10 mg PO DAILY [facility] Last Admin: 01/06/23 09:04 Dose: 10 mg Documented By: MAURICIO Metoprolol Succinate (Metoprolol Succinate Er 25 Mg Tab.Er.24h) 25 mg PO DAILY [facility]; Protocol Last Admin: 01/06/23 09:04 Dose: 25 mg Documented By: MAURICIO Montelukast Sodium (Montelukast Sodium 10 Mg Tablet) 10 mg PO BEDTIME [facility] Last Admin: 01/05/23 21:31 Dose: 10 mg Documented By: DESTINY Pt Own (Trelegy (Ellipta )) 1 inhalation INHALE RDAILY [facility] Last Admin: 01/06/23 09:48 Dose: 1 inhalation Documented By: JAZIEL Ondansetron HCl (Ondansetron Hcl 4 Mg/2 Ml Vial) 4 mg IVPUSH Q8H PRN PRN Reason: Nausea and Vomiting Last Admin: 01/04/23 06:00 Dose: 4 mg Documented By: ZENON Pantoprazole Sodium (Pantoprazole Sodium 40 Mg/10 Ml Vial) 40 mg IVPUSH DAILY@0630 [facility] Last Admin: 01/06/23 05:30 Dose: 40 mg Documented By: DESTINY Pharmacy Consult (Consult Rx Perform Med Rec) 1 each MISCELLANE ONCE PRN PRN Reason: Consult order Pregabalin (Pregabalin 50 Mg Capsule) 50 mg PO DAILY [facility] Last Admin: 01/06/23 09:04 Dose: 50 mg Documented By: MAURICIO Senna (Sennosides 8.6 Mg Tablet) 8.6 mg PO Q48H [facility] Last Admin: 01/06/23 09:04 Dose: 8.6 mg Documented By: MAURICIO Sertraline HCl (Sertraline Hcl 25 Mg Tablet) 25 mg PO DAILY [facility] Last Admin: 01/06/23 09:04 Dose: 25 mg Documented By: MAURICIO Sodium Chloride (0.9 % Sodium Chloride Flush 3 Ml Syringe) 3 ml IVFLUSH QSHIFT [facility] Last Admin: 01/06/23 09:29 Dose: 3 ml Documented By: MAURICIO Vitamin D (Cholecalciferol (Vitamin D3) 25 Mcg Tablet) 50 mcg PO DAILY [facility] Last Admin: 01/06/23 09:04 Dose: 50 mcg Documented By: MAURICIO Labs 01/04/23 05:17 01/05/23 07:29 Assessment and Plan (1) PRB (rectal bleeding): Status: Acute Plan This is an 82 year female with history of hypertension, hyperlipidemia, COPD, GERD, hypothyroidism, CKD, CHF who presents to the emergency department with 2 week history of a abdominal pain and diarrhea with 2 days of black stools Rectal bleeding CT scan of the abdomen/pelvis with no acute intra-abdominal pathology Hemoccult-positive although H/H within normal limits. H/H has remained stable. GI panel negative no further diarrhea at this time EGD and colo> internal hemorrhoids, diverticular disease, no active bleeding seen Hypertension bp improved continue metoprolol Monitor blood pressure closely Hypothyroidism Continue synthroid chronic unspecified CHF no acute exacerbation Hold diuretics for now Monitor fluid status closely gerd IV PPI CKD4 renal function at baseline COPD no acute exacerbation resume home inhalers, prn breathing treatments DVT prophylaxis-mechanical devices/early ambulation given rectal bleeding Code status-DNR/DNI Attending-Dr. Galvin continued hospital stay for tx of anemia and GI procedure Time Spent With Patient Time: Total time managing care of this patient today ____ minutes. Quality Stroke Does the patient have a stroke diagnosis?: No VTE Prior VTE?: No VTE Risk Level:: Medical - moderate - high VTE Device Contraindication: N/A - Device Ordered VTE Drug Contraindication: Treatment Not Indicated
[2023-01-06 13:51] VITALS: BP 172/77; PULSE 77; RESP 17; TEMP 36; O2SAT 94
--- NOTE | 2023-01-06 13:55 | PM.DS ---
DS: Providers Provider Date of Service: 01/06/23 Date of admission: 01/03/23 16:40 Primary care physician: Alvarado Reynoso MD Consults: 01/03/23 16:40 Consult to Gastroenterology Routine Consulting Provider: Eriberto Ayala Reason for consultation: abdominal pain, black stools Has provider been notified: No DS: Diagnosis Discharge Diagnosis (1) PRB (rectal bleeding): Status: Acute DS: Summary Hospital Course Hospital Course: HP as per admitting provider This is an 82-year-old female with history of hypertension, hyperlipidemia, COPD who presents to the emergency department with complaints of abdominal pain and black stools.? Patient states for the past 2 weeks she has had 2-3 episodes of diarrhea daily.? This has been associated with persistent mid abdominal cramping.? The pain is worse after eating and it improves after a bout of diarrhea temporarily.? She denies any associated fever or chills.? She has had nausea but no vomiting.? For past 2 days she states that her diarrhea has changed to a black color, there has not been any bright red blood.? She denies any takeout food, recent sick contacts, travel.? She takes a baby aspirin daily but denies the use of any other NSAIDs or alcohol.? She did recently have a course of oral prednisone for back pain.? In the emergency department she underwent a CT scan of the abdomen/pelvis which showed no evidence of acute inflammation.? She has had decreased oral intake over the past 2 weeks since the onset of her symptoms as it does make her abdominal pain somewhat worse after eating.? Her hemoglobin and hematocrit were within normal range and her vital signs have remained stable.? She denies any dizziness, shortness of breath, chest pain.? She has history of acid reflux but no recent change in symptoms.? Endoscopy and colonoscopy or obtained approximately 5 years ago and were reportedly unremarkable at that time. Given black stools the decision was made to admit her to the hospital for observation and further evaluation . Rectal bleeding CT scan of the abdomen/pelvis with no acute intra-abdominal pathology Hemoccult-positive although H/H within normal limits. H/H has remained stable. GI panel negative EGD and colonoscopy> gastritis, internal hemorrhoids, diverticular disease, melanosis coli Plan to follow up with pathology results, consider outpatient capsule endoscopy, high-fiber diet, avoid straining with stools, Epson salt Sitz baths for hemorrhoids. May also use Anusol cream or suppositories E coli UTI Ceftin for 5 days Hypertension continue metoprolol Hypothyroidism Continue synthroid chronic unspecified CHF no acute exacerbation gerd omeprazole CKD4 renal function at baseline COPD no acute exacerbation resume home inhalers, prn breathing treatments Time Spent with Patient Time attestation: Total time managing care of this patient today ____ minutes. Discharge coordination time: Greater than 30 minutes Quality: Safe Use of Opioids Does Pt have an Active Cancer Diagnosis on the Problem List?: No Quality: Stroke Does the patient have a stroke diagnosis?: No Physical Exam Vital Signs: Vital Signs: Last Vital Signs Temp 96.8 F 01/06/23 13:51 Pulse 77 01/06/23 13:51 Resp 17 01/06/23 13:51 BP 172/77 H 01/06/23 13:51 Pulse Ox 94 01/06/23 13:51 O2 Del Method Room Air 01/06/23 13:51 BMI result Body Mass Index 30.1 Appearing in no acute distress head is normocephalic atraumatic eyes pupils are PERRLA sclera is anicteric mouth throat mucous membranes are intact and moist neck is supple no lymphadenopathy, no JVD noted lung sounds are clear to auscultation heart regular rate rhythm, clear S1, S2 positive bowel sounds, abdomen is soft, nontender neuro patient is alert x3, no focal deficits DS: Data Data Completed and Pending Pending studies at discharge: Pending at discharge 01/06/23 12:17 Surgical [PTH] Routine Discharge Plan Discharge Anticipated Discharge Date/Time: 01/06/23 13:40 Patient Disposition: Home, Self-Care Discharge Diagnosis: Rectal bleeding UTI Referrals: Alvarado Reynoso MD [Primary Care Provider] - 1 Week Eriberto Ayala MD [Physician] - 1 Week (outpatient capsule endoscopy ) Discharge Medications: New cefuroxime axetil 500 mg tablet 500 mg PO BID Qty: 10 0RF Continued sertraline 25 mg tablet 25 mg PO DAILY montelukast 10 mg tablet 10 mg PO BEDTIME metoprolol succinate 25 mg tablet extended release 24 hr 25 mg PO DAILY potassium chloride 20 mEq tablet extended release 20 meq PO ROCAEL Torrez Ellipta 100-62.5-25 mcg blister with device 1 ea inhalation DAILY pregabalin 50 mg capsule 50 mg PO DAILY cyanocobalamin (vitamin B-12) 1,000 mcg Tablet 1,000 mcg PO DAILY calcitriol 0.5 mcg capsule 2 mcg PO SA metronidazole 0.75 % Cream 1 appl TOPICAL DAILY PRN (Reason: Rash) halobetasol propionate 0.05 % cream 1 appl topical BID PRN (Reason: Rash) cholecalciferol (vitamin D3) 50 mcg (2,000 unit) Tablet 50 mcg PO DAILY aspirin 325 mg tablet 325 mg PO DAILY cetirizine 10 mg tablet 10 mg PO DAILY sennosides [senna] 8.6 mg tablet 8.6 mg PO Q48H sucralfate 1 gram tablet 1 g PO BID levothyroxine 88 mcg tablet 88 mcg PO DAILY@0600 fluticasone propionate 50 mcg/actuation spray,suspension 1 spray intranasal DAILY PRN (Reason: Congestion) atorvastatin 40 mg tablet 40 mg PO BEDTIME omeprazole 40 mg capsule,delayed release(DR/EC) 40 mg PO BID torsemide 20 mg tablet 20 mg PO Discharge Orders: Discharge Order (Routine); Ordered 01/06/23 Ordered By: Ernestina Key Diet: Advance to usual diet Activity on Discharge: As tolerated Stand Alone Forms: Patient Portal Discharge page Care Plan Goals: No further episodes of rectal bleeding Health Concerns: Rectal bleeding UTI Plan of Treatment: Follow up with primary care provider Take all medications as prescribed Assessment: See dsischarge summary
--- NOTE | 2023-01-06 14:05 | MHC.CM.PN ---
DC HOME - SELF CARE
== END 2023-01-06 15:36 | disposition home or self-care (01) ==
LOC: HO.ED 16:17 → HO.EDOVER 16:51 → HO.S3 17:50
PROVIDERS: Internal Medicine Gastroenterology; Physician Assistant; Admitting Provider Physician Assistant Medical; Emergency Provider Emergency Medicine; PCP Internal Medicine; Visit Provider Nurse Practitioner Acute Care
PROC: (CPT 45378; principal; 2023-01-06 11:00)
DX: K62.5 Hemorrhage of anus and rectum (principal); K92.1 Melena; R19.8 Other specified symptoms and signs involving the digestive system and abdomen; K57.30 Diverticulosis of large intestine without perforation or abscess without bleeding; K64.0 First degree hemorrhoids; K63.89 Other specified diseases of intestine; K29.70 Gastritis, unspecified, without bleeding; K31.819 Angiodysplasia of stomach and duodenum without bleeding; R10.30 Lower abdominal pain, unspecified; K44.9 Diaphragmatic hernia without obstruction or gangrene; I13.0 Hypertensive heart and chronic kidney disease with heart failure and stage 1 through stage 4 chronic kidney disease, or unspecified chronic kidney disease; N18.4 Chronic kidney disease, stage 4 (severe); I50.9 Heart failure, unspecified; E78.5 Hyperlipidemia, unspecified; K21.9 Gastro-esophageal reflux disease without esophagitis; E03.9 Hypothyroidism, unspecified; Z87.891 Personal history of nicotine dependence; Z79.02 Long term (current) use of antithrombotics/antiplatelets; Z79.899 Other long term (current) drug therapy; Z79.82 Long term (current) use of aspirin
CPT/HCPCS: 45378; 43239; 36415; 74176; 80048; 80076; 81001; 81003; 82272; 83735; 85025; 85027; 85610; 85730; 87086; 87088; 87186; 87507; 88305; 88342; 94640; 96361; 96365; 96374; 96375; 96376; 99221; 99285; J0696; J2405; J3010

== ENCOUNTER → 2023-01-24 10:33 | Outpatient (BNVA) | payer MEDICARE, MEDICAID, SELFPAY | PROVIDERS: PCP Internal Medicine; Visit Provider Internal Medicine Gastroenterology | DX: K92.1 Melena (principal) | CPT/HCPCS: 99212 ==

== ENCOUNTER 2024-08-09 13:00 | Emergency (ER) | payer MEDICARE, MEDICAID, SELFPAY ==
--- NOTE | ~2024-08-09 | CT_ITS ---
EXAMINATION: CT HEAD WITHOUT CONTRAST CT CERVICAL SPINE WITHOUT CONTRAST CLINICAL INFORMATION: Fall. Pain. COMPARISON: None. TECHNIQUE: Imaging was performed from the skull base to vertex without intravenous administration of contrast. In addition, helical noncontrast CT imaging was acquired through the cervical spine and source images were reviewed along with axial reconstructions and sagittal and coronal MPRs. [This CT examination was performed using dose optimization techniques as appropriate, variously including the following: *Automated exposure control *Adjustment of mA and/or kV according to patient size (this includes techniques or standardized protocols for targeted exams where dose is matched to indication/reason for exam; i.e. extremities or head) *Use of iterative reconstruction technique] DLP: 819 mGy-cm FINDINGS: HEAD: No intracranial mass, hemorrhage, or midline shift is visualized. The ventricles and sulci are proportional. No extra-axial collections are identified. The paranasal sinuses and mastoid air cells are well aerated. CERVICAL SPINE: There is no evidence of acute cervical spine fracture. Vertebral bodies remain normal in height. Cervical vertebrae have normal alignment. There is mild to moderate multilevel degenerative spondylosis of the cervical spine with disc height narrowing and endplate spurs and facet joint arthrosis No pre- or paravertebral soft tissue abnormality is identified. Severe emphysematous changes of the lung apices are CT/CT head/brain wo IV con IMPRESSION: 1. No acute intracranial pathology. 2. No CT evidence of acute cervical spine fracture or traumatic subluxation Electronically signed by: John Tejeda MD 08/09/2024 05:25 PM [facility]
--- NOTE | ~2024-08-09 | XR_ITS ---
EXAMINATION: XR HAND, RIGHT CLINICAL INFORMATION: fall, pain COMPARISON: 10/05/2018. TECHNIQUE: PA, lateral, and oblique views of the right hand. FINDINGS: There is diffuse osteopenia. There is no acute fracture, dislocation, or suspicious bone lesion. DIP joint arthritis, with significant progression of arthritic change at the second and third digit DIP joints. Appearance could suggest underlying psoriatic arthritis. Healed fracture of the fifth metacarpal. Carpal bones are intact and normally aligned. XR/XR hand RT min 3V IMPRESSION: 1. No acute fracture or dislocation. 2. Diffuse osteopenia. 3. Healed fifth metacarpal fracture. 4. 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 Differential includes psoriatic versus degenerative arthritis. Electronically signed by: Felipe Gonzalez MD 08/09/2024 04:35 PM [facility]
--- NOTE | ~2024-08-09 | XR_ITS ---
EXAMINATION: XR ELBOW, RIGHT CLINICAL INFORMATION: pain, injury COMPARISON: None available. TECHNIQUE: AP, lateral, and oblique views of the right elbow. FINDINGS: No fracture, dislocation, or suspicious bone lesion. Normal alignment. Joint spaces preserved. Minimal spurring of the lateral epicondyle present. No evidence of joint effusion. No soft tissue abnormality. XR/XR elbow RT min 3V IMPRESSION: No acute findings right elbow. Electronically signed by: Felipe Gonzalez MD 08/09/2024 04:28 PM [facility]
--- NOTE | ~2024-08-09 | XR_ITS ---
EXAMINATION: XR RIBS, RIGHT CLINICAL INFORMATION: pain, injury COMPARISON: None available. TECHNIQUE: AP chest, and 3 views of the right ribs were obtained. FINDINGS: Lungs demonstrate stable biapical pleural thickening and stable left upper lobe scarring. They are otherwise clear. No pneumothorax or effusion. The cardiac, hilar, and mediastinal contours are normal. The aorta is calcified. There are stents in the midline upper abdomen, as well as cholecystectomy clips, and vertebroplasty changes L1 and L2. There is a subtle lucency through the right posterior lateral 10th rib suggesting a nondisplaced fracture. Right ribs are otherwise intact. No additional bony abnormalities. XR/XR ribs RT min 3V w CXR1V IMPRESSION: 1. No active pulmonary disease. No effusion or pneumothorax. 2. Suspect a nondisplaced fracture of the right posterior lateral 10th rib. 3. Ancillary findings as discussed. Electronically signed by: Felipe Gonzalez MD 08/09/2024 04:46 PM [facility]
--- NOTE | ~2024-08-09 | CT_ITS ---
EXAMINATION: CT HEAD WITHOUT CONTRAST CT CERVICAL SPINE WITHOUT CONTRAST CLINICAL INFORMATION: Fall. Pain. COMPARISON: None. TECHNIQUE: Imaging was performed from the skull base to vertex without intravenous administration of contrast. In addition, helical noncontrast CT imaging was acquired through the cervical spine and source images were reviewed along with axial reconstructions and sagittal and coronal MPRs. [This CT examination was performed using dose optimization techniques as appropriate, variously including the following: *Automated exposure control *Adjustment of mA and/or kV according to patient size (this includes techniques or standardized protocols for targeted exams where dose is matched to indication/reason for exam; i.e. extremities or head) *Use of iterative reconstruction technique] DLP: 819 mGy-cm FINDINGS: HEAD: No intracranial mass, hemorrhage, or midline shift is visualized. The ventricles and sulci are proportional. No extra-axial collections are identified. The paranasal sinuses and mastoid air cells are well aerated. CERVICAL SPINE: There is no evidence of acute cervical spine fracture. Vertebral bodies remain normal in height. Cervical vertebrae have normal alignment. There is mild to moderate multilevel degenerative spondylosis of the cervical spine with disc height narrowing and endplate spurs and facet joint arthrosis No pre- or paravertebral soft tissue abnormality is identified. 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 No acute intracranial pathology. 2. No CT evidence of acute cervical spine fracture or traumatic subluxation Electronically signed by: John Tejeda MD 08/09/2024 05:25 PM [facility]
--- NOTE | ~2024-08-09 | XR_ITS ---
EXAMINATION: XR KNEE, RIGHT CLINICAL INFORMATION: fall, pain COMPARISON: None available. TECHNIQUE: Four views of the right knee. FINDINGS: Mild diffuse osteopenia. No fracture, dislocation, or suspicious bone lesion. Joint space preservation in all 3 compartments. No significant joint effusion. Vascular calcifications noted in the soft tissues. XR/XR knee RT 3V IMPRESSION: No acute findings right knee. Electronically signed by: Felipe Gonzalez MD 08/09/2024 04:37 PM [facility] [place]
[2024-08-09 13:05] VITALS: BP 118/66; PULSE 78; O2SAT 95
[2024-08-09 13:14] VITALS: BP 161/52; PULSE 63; RESP 16; TEMP 36.9; O2SAT 98; BMI 27.3
--- NOTE | 2024-08-09 14:14 | ED_ITS ---
HPI - General Adult General Chief complaint: Fall Stated complaint: FALL, RUE PAIN PER EMS Time Seen by Provider: 08/09/24 14:14 Source: patient, family (patient's son) and EMS Mode of arrival: EMS Limitations: no limitations History of Present Illness ED Provider: Annabelle Bhatia PA-C HPI narrative: Patient is an 84 year old assigned female at with a history of CKD, COPD, GERD, CHF, hypothyroidism, HLD, and HTN presenting to the emergency department today with right elbow pain, right hand pain, right knee pain, and right rib pain after a fall. Patient states that she was at home, tripped, and fell - landing on her right side. Patient states that she did not hit her head or have any loss of consciousness. Patient denies any dizziness, lightheadedness, abdominal pain, nausea, vomiting, fever, chills, blurry vision, double vision, loss of vision, chest pain, difficulty breathing, shortness of breath, back pain, night sweats, pain with urination, increased urinary frequency, increased urinary urgency, blood in her urine or stool, syncope or a near syncopal episode, bowel incontinence, bladder incontinence, or any other complaints at this time. Relieving factors: none Exacerbating factors: movement Associated symptoms: denies other symptoms Treatments prior to arrival: none Related Data Home Medications ?Medication ?Instructions ?Recorded ?Confirmed atorvastatin 40 mg tablet 40 mg PO BEDTIME 08/20/21 01/03/23 fluticasone propionate 50 1 spray intranasal DAILY PRN 08/20/21 01/03/23 mcg/actuation nasal Congestion spray,suspension levothyroxine 88 mcg tablet 88 mcg PO DAILY@0600 08/20/21 01/03/23 omeprazole 40 mg capsule,delayed 40 mg PO BID 08/20/21 01/03/23 release torsemide 20 mg tablet 20 mg PO TUSA 08/20/21 01/03/23 aspirin 325 mg tablet 325 mg PO DAILY 02/19/22 01/03/23 cetirizine 10 mg tablet 10 mg PO DAILY 05/09/22 01/03/23 sennosides 8.6 mg tablet (senna) 8.6 mg PO Q48H 05/09/22 01/03/23 sucralfate 1 gram tablet 1 g PO BID 05/09/22 01/03/23 calcitriol 0.5 mcg capsule 2 mcg PO SA 01/03/23 01/03/23 cholecalciferol (vitamin D3) 50 50 mcg PO DAILY 01/03/23 01/03/23 mcg (2,000 unit) tablet cyanocobalamin (vitamin B-12) 1,000 mcg PO DAILY 01/03/23 01/03/23 1,000 mcg tablet fluticasone fur. 100 mcg-umeclid 1 ea inhalation DAILY 01/03/23 01/03/23 62.5 mcg-vilant 25 mcg inhalat.powder (Trelegy Ellipta) halobetasol propionate 0.05 % 1 appl topical BID PRN Rash 01/03/23 01/03/23 topical cream metoprolol succinate 25 mg 25 mg PO DAILY 01/03/23 01/03/23 tablet,extended release 24 hr metronidazole 0.75 % topical cream 1 appl topical DAILY PRN Rash 01/03/23 01/03/23 montelukast 10 mg tablet 10 mg PO BEDTIME 01/03/23 01/03/23 potassium chloride 20 mEq 20 meq PO TUSA 01/03/23 01/03/23 tablet,extended release pregabalin 50 mg capsule 50 mg PO DAILY 01/03/23 01/03/23 sertraline 25 mg tablet 25 mg PO DAILY 01/03/23 01/03/23 ketotifen fumarate 0.025 % (0.035 1 drp ophthalmic (eye) BID PRN 01/24/23 %) eye drops Previous Rx's ?Medication ?Instructions ?Recorded cefuroxime axetil 500 mg tablet 500 mg PO BID #10 tabs 01/06/23 Allergies Allergy/AdvReac Type Severity Reaction Status Date / Time topiramate Allergy Unknown Verified 08/09/24 13:16 morphine [Morphine] AdvReac Intermediate VOMITING Verified 08/09/24 13:16 hydroxyzine [From [facility]] AdvReac Mild NAUSEA & Verified 08/09/24 13:16 VOMITING primidone [PRIMIDONE] AdvReac Mild NAUSEA & Verified 08/09/24 13:16 VOMITING Review of Systems Constitutional: Constitutional: Reports no additional constitutional complaints, Denies chills, Denies fever(s) and Denies night sweats Eyes: Eyes: Reports no additional eye complaints, Denies blurry vision, Denies change in vision, Denies diplopia, Denies eye discharge, Denies loss of vision and Denies eye pain ENT: Denies dizziness Cardiovascular: Cardiovascular: Reports no additional cardiovascular complaints, Denies chest pain, Denies lightheadedness, Denies Loss of Consciousness and Denies dyspnea Respiratory: Respiratory: Reports no additional respiratory complaints and Denies dyspnea Gastrointestinal: Gastrointestinal: Reports no additional gastrointestinal complaints, Denies abdominal pain, Denies melena, Denies hematochezia, Denies change in bowel habits and Denies change in stool character Genitourinary: Genitourinary: Denies hematuria, Denies urinary frequency, Denies dysuria, Denies urinary incontinence, Denies urinary hesitancy and Denies urinary urgency Musculoskeletal: Musculoskeletal: Reports no additional musculoskeletal complaints, Denies numbness and Denies tingling Comments: right hand pain, right elbow pain, right rib pain, right knee pain Neurologic: Denies dizziness, Denies loss of vision, Denies numbness and Denies tingling Psychiatric: Psychiatric: Reports no additional psychiatric complaints Endocrine: Endocrine: Reports no additional endocrine complaints Hematologic/Lymphatic: Hematologic/Lymphatic: Reports no additional hematologic/lymphatic complaints Allergic/Immunologic: Allergic/Immunologic: Reports no additional allergic/immunologic complaints PMFSH Past Medical History Attestation statement: The following information was validated with the patient. (all information validated with the patient's son) Source: old records reviewed, obtained from family (patient's son provided additional history and confirmed the history provided by the patient.) and nursing notes reviewed Medical History UTI (urinary tract infection) CKD (chronic kidney disease) COPD (chronic obstructive pulmonary disease) GERD (gastroesophageal reflux disease) CHF (congestive heart failure) Hypothyroidism HLD (hyperlipidemia) HTN (hypertension) Surgical History Hx of colonoscopy History of esophagogastroduodenoscopy (EGD) Social History Social History Alcohol intake: never Patient Tobacco Use Status: Former Tobacco user Smoked in Last 30 Days: No Second Hand Smoke Exposure: No Use of substances other than those prescribed or required for medical reasons: No Advance Directives: No Advance Directives Information Provided: Yes Do you have a plan to hurt others: No Plan service: No Current occupational status: retired Physical Exam ED Vital Signs: Vital Signs - 24 hr 08/09/24 13:14 08/09/24 16:29 Temperature 98.4 F 97.3 F Pulse Rate 63 58 Respiratory Rate 16 16 Blood Pressure 161/52 H 150/60 H Pulse Oximetry 98 98 Oxygen Delivery Method Room Air Room Air BMI result Body Mass Index 27.3 Const General: cooperative, no acute distress, alert and awake Nutritional Appearance: well nourished Orientation/consciousness: patient oriented x3 Limitations: no limitations HENMT Head: Yes normal to inspection and Yes atraumatic Ears: hearing grossly normal bilaterally and external ears normal General nose exam: Normal external nose present, no nasal discharge noted and no epistaxis Face and sinus: Yes normal facial exam, No abrasion and No laceration Mouth: Normal oral and palatal mucosa present, no drooling and no muffled voice Eyes General: appearance normal, both eyes and all related structures Periorbital: periorbital findings normal Eyelids: Yes eyelids normal Conjunctivae: conjunctivae normal Pupils: Equal, round and reactive pupils present EOM: EOMs intact bilaterally Neck Neck: Yes normal visual inspection, Yes full ROM and Yes no lymphadenopathy Chest Chest palpation & inspection: normal inspection of the chest Resp Effort & Inspection: normal respiratory effort and able to speak in complete sentences GI Inspection: Yes normal to inspection Neuro General: patient oriented x3 and moves all extremities Cranial nerves: Yes Equal, round and reactive pupils present Cognition (Neuro): normal cognition Extrem Other: small skin tear present to the dorsal right hand and the right elbow General: Yes full ROM and Yes capillary refill normal Psych Appearance: grossly normal Mental Status: mental status grossly normal Affect: normal affect Attitude: cooperative Thought process: Normal thought process present Thought content: Normal thought content present Insight: Good insight present (Psych) Medications Administered Discontinued Medications Generic Name Dose Route Start Last Admin Trade Name Freq PRN Reason Stop Dose Admin Acetaminophen 975 mg 08/09/24 16:24 08/09/24 16:32 Acetaminophen 325 Mg Tablet PO 08/09/24 16:25 975 mg ONCE ONE Administration Procedures Laceration Right dorsal hand abrasion: Site: hand Side (If applicable): right Size (cm): 4 Description: linear Depth: simple, single layer Pre-repair: irrigated extensively and deep structures intact Skin layer closed with: other (steri strips) Size (cm): other (steri strips) Technique: other (steri strips) Right elbow abrasion: Site: other (elbow) Side (If applicable): right Size (cm): 3 Description: irregular Depth: simple, single layer Pre-repair: wound explored, irrigated extensively and deep structures intact Skin layer closed with: other (steri strips) Size (cm): other (steri strips) Technique: other (steri strips) Medical Decision Making Medical Decision Making MDM Narrative: Patient is an 84 year old assigned female at with a history of CKD, COPD, GERD, CHF, hypothyroidism, HLD, and HTN presenting to the emergency department today with right elbow pain, right hand pain, right knee pain, and right rib pain after a fall. Patient's physical exam was as noted in the physical exam portion of this note. Patient's right hand, right elbow, and right knee x-rays showed no acute process. Patient's right ribs x-ray a nondisplaced right posterior lateral 10th rib fracture. Patient's CT head and c-spine showed no acute process. I explained my physical exam findings as well as all test results to the patient and the patient's son. I answered all questions asked by the patient and the patient's son .I repaired the patient's right dorsal hand abrasion and right elbow abrasion, per procedure note, without incident. I applied dressings to both wounds, without incident. Patient's PMS was intact prior to and after repair + dressing. I stressed the importance of the patient taking her medication as directed (either prescribed or as the over the counter packaging recommends). I stressed the importance of the patient following up with her primary care provider and the wound center. I stressed the importance of the patient returning to the emergency department immediately if her symptoms were to worsen or if she were to develop any dizziness, shortness of breath, difficulty breathing, chest pain, blurry vision, loss of vision, nausea, vomiting, abdominal pain, fever, chills, back pain, or any other complaints. Patient and the patient's son verbalized agreement and understanding with this treatment plan and discharge. Differential Diagnosis Differential Diagnoses: The differential diagnosis associated with the presentation includes Fall Abrasion Skin tear Hand fx Right knee fx Intracranial hemorrhage Rib fracture Admission/Observation Consideration of admission/observation: Escalation of care including admission/observation considered Patient's disposition will be determined after imaging results Independent Interpretation I performed an independent interpretation of an: Plain X-Ray and CT Scan Interpretation: My interpretation is in agreement with the radiologist's impression of these imaging studies. EXAMINATION: XR KNEE, RIGHT CLINICAL INFORMATION: fall, pain COMPARISON: None available. TECHNIQUE: Four views of the right knee. FINDINGS: Mild diffuse osteopenia. No fracture, dislocation, or suspicious bone lesion. Joint space preservation in all 3 compartments. No significant joint effusion. Vascular calcifications noted in the soft tissues. XR/XR knee RT 3V IMPRESSION: No acute findings right knee. Electronically signed by: Felipe Gonzalez MD 08/09/2024 04:37 PM [employer] Dictated By: Felipe Gonzalez MD Signed By: Electronically signed by Felipe Gonzalez MD 08/09/24 1637 EXAMINATION: XR ELBOW, RIGHT CLINICAL INFORMATION: pain, injury COMPARISON: None available. TECHNIQUE: AP, lateral, and oblique views of the right elbow. FINDINGS: No fracture, dislocation, or suspicious bone lesion. Normal alignment. Joint spaces preserved. Minimal spurring of the lateral epicondyle present. No evidence of joint effusion. No soft tissue abnormality. XR/XR elbow RT min 3V IMPRESSION: No acute findings right elbow. Electronically signed by: Felipe Gonzalez MD 08/09/2024 04:28 PM EST RP Dictated By: Felipe Gonzalez MD Signed By: Electronically signed by Felipe Gonzalez MD 08/09/24 1628 EXAMINATION: XR RIBS, RIGHT CLINICAL INFORMATION: pain, injury COMPARISON: None available. TECHNIQUE: AP chest, and 3 views of the right ribs were obtained. FINDINGS: Lungs demonstrate stable biapical pleural thickening and stable left upper lobe scarring. They are otherwise clear. No pneumothorax or effusion. The cardiac, hilar, and mediastinal contours are normal. The aorta is calcified. There are stents in the midline upper abdomen, as well as cholecystectomy clips, and vertebroplasty changes L1 and L2. There is a subtle lucency through the right posterior lateral 10th rib suggesting a nondisplaced fracture. Right ribs are otherwise intact. No additional bony abnormalities. XR/XR ribs RT min 3V w CXR1V IMPRESSION: 1. No active pulmonary disease. No effusion or pneumothorax. 2. Suspect a nondisplaced fracture of the right posterior lateral 10th rib. 3. Ancillary findings as discussed. Electronically signed by: Felipe Gonzalez MD 08/09/2024 04:46 PM EST Dictated By: Felipe Gonzalez MD Signed By: Electronically signed by Felipe Gonzalez MD 08/09/24 1646 EXAMINATION: XR HAND, RIGHT CLINICAL INFORMATION: fall, pain COMPARISON: 10/05/2018. TECHNIQUE: PA, lateral, and oblique views of the right hand. FINDINGS: There is diffuse osteopenia. There is no acute fracture, dislocation, or suspicious bone lesion. DIP joint arthritis, with significant progression of arthritic change at the second and third digit DIP joints. Appearance could suggest underlying psoriatic arthritis. Healed fracture of the fifth metacarpal. Carpal bones are intact and normally aligned. XR/XR hand RT min 3V IMPRESSION: 1. No acute fracture or dislocation. 2. Diffuse osteopenia. 3. Healed fifth metacarpal fracture. 4. 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 Differential includes psoriatic versus degenerative arthritis. Electronically signed by: Felipe Gonzalez MD 08/09/2024 04:35 PM [facility] Dictated By: Felipe Gonzalez MD Signed By: Electronically signed by Felipe Gonzalez MD 08/09/24 1635 EXAMINATION: CT HEAD WITHOUT CONTRAST CT CERVICAL SPINE WITHOUT CONTRAST CLINICAL INFORMATION: Fall. Pain. COMPARISON: None. TECHNIQUE: Imaging was performed from the skull base to vertex without intravenous administration of contrast. In addition, helical noncontrast CT imaging was acquired through the cervical spine and source images were reviewed along with axial reconstructions and sagittal and coronal MPRs. This CT examination was performed using dose optimization techniques as appropriate, variously including the following: *Automated exposure control *Adjustment of mA and/or kV according to patient size (this includes techniques or standardized protocols for targeted exams where dose is matched to indication/reason for exam; i.e. extremities or head) *Use of iterative reconstruction technique] DLP: 819 mGy-cm FINDINGS: HEAD: No intracranial mass, hemorrhage, or midline shift is visualized. The ventricles and sulci are proportional. No extra-axial collections are identified. The paranasal sinuses and mastoid air cells are well aerated. CERVICAL SPINE: There is no evidence of acute cervical spine fracture. Vertebral bodies remain normal in height. Cervical vertebrae have normal alignment. There is mild to moderate multilevel degenerative spondylosis of the cervical spine with disc height narrowing and endplate spurs and facet joint arthrosis No pre- or paravertebral soft tissue abnormality is identified. 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 No acute intracranial pathology. 2. No CT evidence of acute cervical spine fracture or traumatic subluxation Electronically signed by: John Tejeda MD 08/09/2024 05:25 PM EST Dictated By: John Tejeda MD Signed By: Electronically signed by John Tejeda MD 08/09/24 6508 Radiology Impression Discussion of test interpretation with radiology: I have reviewed the radiol ogist's reading. Independent Historian Clinical information obtained from an independent historian. History obtained from or confirmed by: EMS (EMS provided additional history and confirmed the history provided by the patient. ) and Other (patient's son provided additional history and confirmed the history provided by the patient.) Chronic Conditions Patient?s care impacted by: Hypertension Critical Care Time Critical Care Time Critical Care Time: Yes Total Critical Care Time: 44 Attestation: I spent 44 minutes of Critical Care Time with this patient. This does not include time spent on separately reported billable procedures. Discharge Plan Discharge Clinical Impression: Fall, Skin tear of hand without complication, Skin tear of elbow without complication, Fracture of rib Patient Disposition: Home, Self-Care Instructions: Fall Prevention for Older Adults (ED), Rib Fracture (ED), Steristrips (ED), Skin Tear (ED) Additional Instructions: I applied multiple steri strips to your right hand and right elbow skin tears. The steri strips will eventually fall off - this is by design and is OK. You are missing skin in some of the areas of the right hand and right elbow. The current dressing you have on is to stay on / in place until 08/11/2024 and at that point you can change it. You should remove the dressing immediately if you begin to have any numbness, tingling, change in sensation, or change in temperature to the right upper extremity. You must follow up with the wound care center because these wounds will take significant time to heal. For at least 10 minutes per hour you must do incentive spirometry exercises to avoid developing pneumonia. Follow up with your primary care provider. Return to the emergency department immediately if your symptoms worsen or if you develop any dizziness, shortness of breath, difficulty breathing, chest pain, blurry vision, loss of vision, nausea, vomiting, abdominal pain, fever, chills, back pain, or any other complaints. Prescriptions: No Action sertraline 25 mg tablet 25 mg PO DAILY montelukast 10 mg tablet 10 mg PO BEDTIME metoprolol succinate 25 mg tablet extended release 24 hr 25 mg PO DAILY potassium chloride 20 mEq tablet extended release 20 meq PO TUSA Trelegy Ellipta 100-62.5-25 mcg blister with device 1 ea inhalation DAILY pregabalin 50 mg capsule 50 mg PO DAILY cyanocobalamin (vitamin B-12) 1,000 mcg Tablet 1,000 mcg PO DAILY calcitriol 0.5 mcg capsule 2 mcg PO SA metronidazole 0.75 % Cream 1 appl TOPICAL DAILY PRN (Reason: Rash) halobetasol propionate 0.05 % cream 1 appl topical BID PRN (Reason: Rash) cholecalciferol (vitamin D3) 50 mcg (2,000 unit) Tablet 50 mcg PO DAILY cefuroxime axetil 500 mg tablet 500 mg PO BID Qty: 10 0RF aspirin 325 mg tablet 325 mg PO DAILY cetirizine 10 mg tablet 10 mg PO DAILY sennosides [senna] 8.6 mg tablet 8.6 mg PO Q48H sucralfate 1 gram tablet 1 g PO BID levothyroxine 88 mcg tablet 88 mcg PO DAILY@0600 fluticasone propionate 50 mcg/actuation spray,suspension 1 spray intranasal DAILY PRN (Reason: Congestion) atorvastatin 40 mg tablet 40 mg PO BEDTIME omeprazole 40 mg capsule,delayed release(DR/EC) 40 mg PO BID torsemide 20 mg tablet 20 mg PO TUSA ketotifen fumarate 0.025 % (0.035 %) drops 1 drp ophthalmic (eye) BID PRN Referrals: [facility] [place] [Provider Group] (Call to establish and follow up with the wound center. ) Alvarado Reynoso MD [Primary Care Provider] - Print Language: Kiswahili
[2024-08-09 16:29] VITALS: BP 150/60; PULSE 58; RESP 16; TEMP 36.3; O2SAT 98
[2024-08-09] MEDS: Acetaminophen 325 MG TABLET 975 MG PO (16:32)
[2024-08-09 17:55] VITALS: BP 170/96; PULSE 61; RESP 16; TEMP 36.4; O2SAT 96
[2024-08-09 18:14] VITALS: BP 170/96; PULSE 61; RESP 16; TEMP 36.4; O2SAT 96
== END 2024-08-09 18:14 | disposition home or self-care (01) ==
PROVIDERS: Emergency Provider Emergency Medicine Emergency Medical Services; PCP Internal Medicine
DX: S22.31XA Fracture of one rib, right side, initial encounter for closed fracture (principal); S51.011A Laceration without foreign body of right elbow, initial encounter; S61.411A Laceration without foreign body of right hand, initial encounter; M25.521 Pain in right elbow; M25.561 Pain in right knee; M54.2 Cervicalgia; R07.81 Pleurodynia; R51.9 Headache, unspecified; I10 Essential (primary) hypertension; W01.0XXA Fall on same level from slipping, tripping and stumbling without subsequent striking against object, initial encounter; Y93.89 Activity, other specified; Y92.098 Other place in other non-institutional residence as the place of occurrence of the external cause; Y99.8 Other external cause status; Z91.81 History of falling; Z79.899 Other long term (current) drug therapy; Z87.891 Personal history of nicotine dependence
CPT/HCPCS: 12002; 70450; 71101; 72125; 73080; 73130; 73562; 94010; 99284

== ENCOUNTER → 2024-08-09 14:00 | Outpatient (BNV) | payer MEDICARE, MEDICAID, SELFPAY | PROVIDERS: Emergency Provider Emergency Medicine Emergency Medical Services; PCP Internal Medicine; Visit Provider Radiology Diagnostic Radiology | DX: R07.82 Intercostal pain (principal); M25.561 Pain in right knee; M25.521 Pain in right elbow; M79.641 Pain in right hand | CPT/HCPCS: 71101; 73080; 73130; 73562 ==